=== PATIENT | male | born 1975 | race Caucasian/White ===

== ENCOUNTER 2016-08-17 | Emergency (ER) | payer MEDICARE, MEDICAID | END 2016-08-17 18:18 | disposition home or self-care (01) ==

== ENCOUNTER 2016-08-28 12:00 | Outpatient (CLI) | payer MEDICARE, MEDICAID | END 2016-08-28 12:01 | disposition home or self-care (01) | DX: F15.20 Other stimulant dependence, uncomplicated (principal); F20.9 Schizophrenia, unspecified ==

== ENCOUNTER 2016-10-15 15:47 | Outpatient (CLI) | payer MEDICARE, MEDICAID ==
[2016-10-15] MEDS ORDERED: GADOBUTROL 7.5 MMOL/7.5 ML VIAL IVP ONE (16:38)
== END 2016-10-15 15:48 | disposition home or self-care (01) ==
DX: G40.909 Epilepsy, unspecified, not intractable, without status epilepticus (principal)
CPT/HCPCS: 70553; A9585

== ENCOUNTER 2016-10-20 00:22 | Outpatient (CLI) | payer MEDICARE, MEDICAID | END 2016-10-20 00:23 | disposition critical access hospital (66) | DX: R42 Dizziness and giddiness (principal); R26.2 Difficulty in walking, not elsewhere classified | CPT/HCPCS: A0425; A0429 ==

== ENCOUNTER 2016-10-20 00:48 | Emergency (ER) | payer MEDICARE, MEDICAID ==
[2016-10-20] MEDS ORDERED: MECLIZINE 12.5 MG TABLET PO STA (01:10)
[2016-10-20] MEDS ORDERED: MECLIZINE 12.5 MG TABLET PO ONE (01:10)
== END 2016-10-20 02:56 | disposition home or self-care (01) ==
DX: R42 Dizziness and giddiness (principal); F17.200 Nicotine dependence, unspecified, uncomplicated
CPT/HCPCS: 36415; 80048; 80164; 85025; 99283; 99284; A9270

== ENCOUNTER 2016-11-01 08:00 | Outpatient (CLI) | payer MEDICARE, MEDICAID | END 2016-11-01 23:59 | DX: Z13.29 Encounter for screening for other suspected endocrine disorder (principal) ==

== ENCOUNTER 2016-11-17 04:21 | Outpatient (CLI) | payer MEDICARE, MEDICAID | END 2016-11-17 04:22 | disposition critical access hospital (66) | DX: T20.16XA Burn of first degree of forehead and cheek, initial encounter (principal); X08.8XXA Exposure to other specified smoke, fire and flames, initial encounter; Y93.84 Activity, sleeping; Y92.029 Unspecified place in mobile home as the place of occurrence of the external cause | CPT/HCPCS: A0425; A0429 ==

== ENCOUNTER 2016-11-17 04:49 | Emergency (ER) | payer MEDICARE, MEDICAID ==
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
[2016-11-17] MEDS: lamoTRIgine 100 MG TABLET PO ONE (05:34)
[2016-11-17] MEDS: DIVALPROEX DR 125 MG TABLET PO STA (05:34)
[2016-11-17 05:41] VITALS: BP 127/78
[2016-11-17] MEDS ORDERED: lamoTRIgine 100 MG TABLET PO SCH (09:00)
== END 2016-11-17 05:43 | disposition home or self-care (01) ==
LOC: EDUNIT# → ED 04:49 → SUPCPDRO 04:49 → ED 05:43
DX: T59.811A Toxic effect of smoke, accidental (unintentional), initial encounter (principal); J70.5 Respiratory conditions due to smoke inhalation; Y92.029 Unspecified place in mobile home as the place of occurrence of the external cause; G40.909 Epilepsy, unspecified, not intractable, without status epilepticus; F17.200 Nicotine dependence, unspecified, uncomplicated
CPT/HCPCS: 99283; 99284

== ENCOUNTER 2016-11-28 08:00 | Outpatient (CLI) | payer MEDICARE, MEDICAID | END 2016-11-28 08:01 | disposition home or self-care (01) | DX: H53.8 Other visual disturbances (principal) ==

== ENCOUNTER 2017-04-16 14:05 | Outpatient (CLI) | payer MEDICARE, MEDICAID | END 2017-04-16 14:06 | disposition home or self-care (01) | LOC: LAB.F 14:05 | PROVIDERS: ATTEND Psychiatry & Neurology Neurology | DX: G40.909 Epilepsy, unspecified, not intractable, without status epilepticus (principal); R78.89 Finding of other specified substances, not normally found in blood | CPT/HCPCS: 36415; 80175 ==

== ENCOUNTER 2017-10-28 14:27 | Outpatient (CLI) | payer MEDICARE, MEDICAID | END 2017-10-28 14:28 | disposition EMS.NT | LOC: EMS 14:27 | PROVIDERS: ATTEND Surgery | DX: R56.9 Unspecified convulsions (principal) ==

== ENCOUNTER 2017-11-13 08:00 | Outpatient (CLI) | payer MEDICARE, MEDICAID ==
[2017-11-13 18:04] LABS: VALPROIC ACID (DEPAKOTE) 44.9 ug/mL
== END 2017-11-13 08:01 ==
LOC: LAB.F 08:00
PROVIDERS: ATTEND Psychiatry & Neurology Neurology
DX: R56.9 Unspecified convulsions (principal)
CPT/HCPCS: 36415; 80164; 80175

== ENCOUNTER 2018-06-30 14:37 | Outpatient (CLI) | payer MEDICARE, MEDICAID ==
--- NOTE | 2018-06-30 15:36 | XRAY Report ---
Reason: CONTUSION OF LEFT BACK WALL OF THORAX,INITIAL ENCO Procedure Date: 06/30/2018 Accession Number: [id number] / [id number] Procedure: XR - Ribs w/PA Chest LT CPT Code: FULL RESULT: EXAM: LEFT RIB RADIOGRAPHY EXAM DATE: 06/30/2018 02:56 PM. CLINICAL HISTORY: Contusion of left back wall of thorax, initial encounter. COMPARISON: XR ribs unilateral 2 views 09/16/2008 4:23 PM. TECHNIQUE: 1 view of the chest and 2 views of the ribs. FINDINGS: Bones: Normal. No fracture or bone lesion. Lungs: No focal opacities. No pneumothorax. No pleural effusions. Mediastinum: Heart and mediastinal contours are unremarkable. Other: None. IMPRESSION: No fracture is detected. RADIA
== END 2018-06-30 14:38 | disposition home or self-care (01) ==
LOC: DI 14:37
PROVIDERS: ATTEND Registered Nurse
DX: S20.222A Contusion of left back wall of thorax, initial encounter (principal)

== ENCOUNTER 2018-09-10 14:42 | Outpatient (CLI) | payer MEDICARE, MEDICAID ==
[2018-09-10 18:10] LABS: VALPROIC ACID (DEPAKOTE) 47.8 ug/mL
== END 2018-09-10 14:43 | disposition home or self-care (01) ==
LOC: LAB.F 14:42
PROVIDERS: ATTEND Psychiatry & Neurology Neurology
DX: G40.909 Epilepsy, unspecified, not intractable, without status epilepticus (principal)
CPT/HCPCS: 36415; 80164; 80175

== ENCOUNTER 2019-01-08 14:21 | Outpatient (CLI) | payer MEDICARE, MEDICAID ==
[2019-01-08 17:44] LABS: VALPROIC ACID (DEPAKOTE) 79.7 ug/mL
== END 2019-01-08 14:22 | disposition home or self-care (01) ==
LOC: LAB.F 14:21
PROVIDERS: ATTEND Psychiatry & Neurology Neurology
DX: G40.909 Epilepsy, unspecified, not intractable, without status epilepticus (principal)
CPT/HCPCS: 36415; 80164; 80175

== ENCOUNTER 2019-04-19 14:31 | Emergency (ER) | payer MEDICARE, MEDICAID ==
[2019-04-19] MEDS ORDERED: LIDOCAINE 2% 10 ML MDV SUBQ STA (15:11)
--- NOTE | 2019-04-19 15:24 | ED Physician Documentation ---
History of Present Illness - Stated complaint Stated Complaint: RT SIDED MOUTH PX - Chief complaint Chief Complaint: Heent - History obtained from History obtained from: Patient, Family - History of Present Illness Timing: Today Pain level max: 7 Pain level now: 6 - Additonal information Additional information: 43-year-old male presents to the emergency department stating that the right side of his face is been hurting the past few days. Today had increased swelling. His mother called her dentist who called in a prescription for amoxicillin for him. Swelling worsened and came here for evaluation. No fe vers. Has an appointment with the dentist on Saturday. Nothing makes it better. Worse with eating and drinking Review of Systems Constitutional: denies: Fever, Chills GI: denies: Nausea, Vomiting, Diarrhea Skin: denies: Rash Musculoskeletal: denies: Neck pain, Back pain Neurologic: denies: Headache PD PAST MEDICAL HISTORY - Past Medical History Past Medical History: No Cardiovascular: None Respiratory: None Neuro: Seizure disorder Endocrine/Autoimmune: None GI: None : None HEENT: None Psych: None Musculoskeletal: None Derm: None - Past Surgical History Past Surgical History: No - Present Medications Home Medications: Ambulatory Orders Medication Instructions Recorded Confirmed Divalproex Sodium [Depakote] 250 mg PO BID 11/22/13 11/17/16 lamoTRIgine [LaMICtal] 300 mg PO BID 11/22/13 11/17/[address] [Depakote Dr] 250 mg PO DAILY #10 tablet 11/17/16 Divalproex Sodium [Depakote] 500 mg PO BID #20 tablet. 11/17/16 lamoTRIgine [LaMICtal] 300 mg PO DAILY #30 tablet 11/17/16 risperiDONE [Risperdal] 3 mg PO DAILY #10 tablet 11/17/16 risperiDONE [Risperdal] 3 mg PO DAILY PM 11/17/16 11/17/16 Hydrocodone/Acetaminophen 1 - 2 each PO Q6H PRN #14 tablet 04/19/19 [Hydrocodon-Acetaminophen 5-325] - Allergies Allergies/Adverse Reactions: Allergies Allergy/AdvReac Type Severity Reaction Status Date / Time No Known Drug Allergies Allergy Verified 11/17/16 04:58 - Social History Does the pt smoke?: Yes Smoking Status: Current every day smoker Does the pt drink ETOH?: No Does the pt have substance abuse?: Yes Substance Use and Type: Marijuana, Meth - Immunizations Immunizations are current?: Yes - POLST Patient has POLST: No PD ED PE NORMAL - Vitals Vital signs reviewed: Yes - General General: Alert and oriented X 3, No acute distress - HEENT HEENT: Moist mucous membranes - Neck Neck: Supple, no meningeal sign, No adenopathy - Cardiac Cardiac: RRR - Respiratory Respiratory: No respiratory distress, Clear bilaterally - Derm Derm: Warm and dry - Neuro Neuro: Alert and oriented X 3 PD ED PE EXPANDED - HEENT HEENT Visual: 1 - abscess, swelling, tenderness Results - Vitals Vitals: Vital Signs - 24 hr 04/19/19 04/19/19 15:28 16:14 Temperature 36.8 C Heart Rate 85 94 Respiratory 18 18 Rate Blood Pressure 143/72 H 152/87 H O2 Saturation 98 97 Oxygen O2 Source Room air Procedures - General procedure General procedure: Lidocaine was infiltrated into the right cheek and next to the teeth on the right maxilla. Good anesthesia achieved. An 18-gauge needle was placed and 2 cc of purulent material removed. Tolerated well. PD MEDICAL DECISION MAKING - ED course Complexity details: considered differential, d/w patient ED course: 43-year-old male with dental abscess and facial swelling. This was confirmed with ultrasound. Needle aspiration performed. Tolerated well. Given Rocephin here. We will continue the amoxicillin at home. We will also prescribe pain medication for home. Patient counseled regarding signs and symptoms for which I believe and urgent re-evaluation would be necessary. Patient with good understanding of and agreement to plan and is comfortable going home at this time This document was made in part using voice recognition software. While efforts are made to proofread this document, sound alike and grammatical errors may occur. Departure - Departure Disposition: 01 Home, Self Care Clinical Impression: Pain due to dental caries, Dental abscess Condition: Good Instructions: ED Abscess Dental Follow-Up: Provider,Other [Primary Care Provider] - Prescriptions: Hydrocodone/Acetaminophen [Hydrocodon-Acetaminophen 5-325] 1 - 2 each PO Q6H PRN #14 tablet PRN Reason: pain Comments: Follow-up with your dentist in 2 days. Return if you worsen. The swelling should decrease over the next 24 hours. Continue the antibiotics at home. Do not drink alcohol or drive while on narcotic pain medicine. Note that many narcotic pain relievers also contain tylenol/acetaminophen. Please ensure that your total dose of acetaminophen from all sources does not exceed 3 grams (3000mg) per day. You may constipated on this medication, take a stool softener such as "Colace" twice a day while you are on it. Also recommend a [id number] laxative such as senna or MiraLAX any day that you do not have a bowel movement. If you received narcotic pain medication in the emergency department, do not drive or operate machinery for the next 24 hours. Discharge Date/Time: 04/19/19 16:15
[2019-04-19] MEDS ORDERED: cefTRIAXone 1 GM VIAL IM STA (15:36)
[2019-04-19] MEDS ORDERED: HYDROcod/ACETAM 5/325 MG TABLET PO STA (15:36)
[2019-04-19] MEDS ORDERED: LIDOCAINE 1% 2 ML VIAL MC ONE (15:36)
[2019-04-19 16:15] VITALS: BP 152/87
== END 2019-04-19 16:15 | disposition home or self-care (01) ==
LOC: ED 14:31
DX: K04.7 Periapical abscess without sinus (principal); K02.9 Dental caries, unspecified; F17.200 Nicotine dependence, unspecified, uncomplicated
CPT/HCPCS: 41800; 96372; 99283; 99284; A9270

== ENCOUNTER 2019-05-22 18:51 | Outpatient (CLI) | payer MEDICARE, MEDICAID | END 2019-05-22 18:52 | disposition EMS.NT | LOC: EMS 18:51 | PROVIDERS: ATTEND Surgery | DX: R56.9 Unspecified convulsions (principal) ==

== ENCOUNTER 2019-10-22 14:39 | Outpatient (CLI) | payer MEDICARE, MEDICAID | END 2019-10-22 14:40 | disposition home or self-care (01) | LOC: LAB 14:39 | PROVIDERS: ATTEND Psychiatry & Neurology Neurology | DX: G40.909 Epilepsy, unspecified, not intractable, without status epilepticus (principal) | CPT/HCPCS: 36415; 80164; 80175 ==

== ENCOUNTER 2020-02-03 15:17 | Outpatient (CLI) | payer MEDICARE, MEDICAID ==
[2020-02-03 20:27] LABS: VALPROIC ACID (DEPAKOTE) 112.4 ug/mL
== END 2020-02-03 15:18 | disposition home or self-care (01) ==
LOC: LAB.S 15:17
PROVIDERS: ATTEND Psychiatry & Neurology Neurology
DX: G40.909 Epilepsy, unspecified, not intractable, without status epilepticus (principal)
CPT/HCPCS: 36415; 80164; 80175

== ENCOUNTER 2020-02-16 14:21 | Outpatient (CLI) | payer MEDICARE, MEDICAID ==
[2020-02-16 21:02] LABS: BASOPHILS % (AUTO) 0.4 %; EOSINOPHILS # (AUTO) 0.1 10^3/uL (0.0-0.7); EOSINOPHILS % (AUTO) 1.3 %; HGB - HEMOGLOBIN 13.3 g/dL (14.0-18.0); LYMPHOCYTES # (AUTO) 2.2 10^3/uL (1.5-3.5); LYMPHOCYTES % (AUTO) 31.2 %; MEAN CORPUSCULAR HEMOGLOBIN 33.1 pg (27.0-31.0); MEAN CORPUSCULAR HGB CONC 32.5 g/dL (32.0-36.0); MEAN CORPUSCULAR VOLUME 101.7 fL (80.0-94.0); MEAN PLATELET VOLUME 9.8 fL (7.4-11.4); MONOCYTES # (AUTO) 0.7 10^3/uL (0.0-1.0); MONOCYTES % (AUTO) 9.9 %; NEUTROPHILS # (AUTO) 4.1 10^3/uL (1.5-6.6); NEUTROPHILS % (AUTO) 56.9 %; PLT - PLATELET COUNT 225 10^3/uL (130-450); RED BLOOD COUNT 4.02 10^6/uL (4.70-6.10); RED CELL DISTRIBUTION WIDTH 12.2 % (12.0-15.0); WHITE BLOOD COUNT 7.2 x10^3/uL (4.8-10.8)
[2020-02-16 21:19] LABS: ALBUMIN 4.2 g/dL (3.2-5.5); ALKALINE PHOSPHATASE 51 IU/L (42-121); ALT ALANINE AMINOTRANSFERASE 17 IU/L (10-60); AST ASPARTATE AMINOTRANSFERASE 23 IU/L (10-42); BILIRUBIN,TOTAL 0.7 mg/dL (0.2-1.0); BUN - BLOOD UREA NITROGEN 13 mg/dL (6-20); CALCIUM 8.9 mg/dL (8.5-10.3); CARBON DIOXIDE - CO2 28 mmol/L (21-32); CHLORIDE 96 mmol/L (101-111); CREATININE 0.9 mg/dL (0.6-1.2); GLUCOSE 130 mg/dL (70-100); SODIUM 138 mmol/L (135-145); TOTAL PROTEIN 6.3 g/dL (6.7-8.2)
[2020-02-16 21:59] LABS: CRP - C-REACTIVE PROTEIN < 1.0 mg/dL (0-1.0)
[2020-02-19 14:34] LABS: ANA SCREEN NEGATIVE (NEGATIVE)
== END 2020-02-16 14:22 | disposition home or self-care (01) ==
LOC: LAB.S 14:21
PROVIDERS: ATTEND Family Medicine
DX: F20.9 Schizophrenia, unspecified (principal); M54.5 Low back pain; G40.909 Epilepsy, unspecified, not intractable, without status epilepticus
CPT/HCPCS: 36415; 80053; 85025; 85651; 86038; 86140

== ENCOUNTER 2020-05-07 07:00 | Outpatient (CLI) | payer MEDICARE, MEDICAID | END 2020-05-07 23:59 | disposition home or self-care (01) | LOC: LAB.R 07:00 | PROVIDERS: ATTEND Emergency Medicine | DX: L02.412 Cutaneous abscess of left axilla (principal) | CPT/HCPCS: 87070; 87181; 87205 ==

== ENCOUNTER 2021-01-05 14:24 | Outpatient (CLI) | payer MEDICARE, MEDICAID ==
--- NOTE | 2021-01-05 16:37 | XRAY Report ---
PROCEDURE: Ankle 3 View RT INDICATIONS: Right ankle sprain TECHNIQUE: 3 views of the ankle were acquired. COMPARISON: None FINDINGS: Bones: No fractures or dislocations. Ankle mortise is normally aligned. No suspicious bony lesions . Soft tissues: No tibiotalar joint effusion. Achilles tendon appears normal. IMPRESSION: No acute finding. Reviewed by: Tio Diaz MD on 01/05/2021 4:36 PM PDT Approved by: Toi Diaz MD on 01/05/2021 4:36 PM PDT Station ID: [id number]
== END 2021-01-05 23:59 | disposition home or self-care (01) ==
LOC: DI.S 14:24
PROVIDERS: ATTEND Emergency Medicine
DX: S93.491A Sprain of other ligament of right ankle, initial encounter (principal)

== ENCOUNTER 2021-01-11 15:27 | Emergency (ER) | payer MEDICARE, MEDICAID ==
--- OUTSIDE RECORDS SUMMARY | 2021-01-11 16:06 | EXTERNAL MEDICAL SUMMARY RPT | Continuity of Care Document ---
:1975 Demographics Phone Unavailable Preferred Language Unknown Marital Status Unknown Sikhism Affiliation Unknown Race Unknown Ethnic Group Unknown Author Organization [facility] Address [address] [place] [address] Phone Allergies Encounters Medications Problems Results
[2021-01-11 16:07] LABS: BASOPHILS % (AUTO) 0.3 %; EOSINOPHILS # (AUTO) 0.1 10^3/uL (0.0-0.7); EOSINOPHILS % (AUTO) 1.8 %; HGB - HEMOGLOBIN 15.3 g/dL (14.0-18.0); LYMPHOCYTES # (AUTO) 2.4 10^3/uL (1.5-3.5); LYMPHOCYTES % (AUTO) 29.9 %; MEAN CORPUSCULAR HEMOGLOBIN 32.4 pg (27.0-31.0); MEAN CORPUSCULAR VOLUME 95.3 fL (80.0-94.0); MONOCYTES # (AUTO) 0.9 10^3/uL (0.0-1.0); MONOCYTES % (AUTO) 11.5 %; NEUTROPHILS # (AUTO) 4.5 10^3/uL (1.5-6.6); NEUTROPHILS % (AUTO) 56.2 %; PLT - PLATELET COUNT 273 10^3/uL (130-450); RED BLOOD COUNT 4.72 10^6/uL (4.70-6.10); RED CELL DISTRIBUTION WIDTH 11.9 % (12.0-15.0)
[2021-01-11 16:24] LABS: ACETAMINOPHEN < 10 ug/mL (10-30); ALBUMIN 4.2 g/dL (3.2-5.5); ALBUMIN/GLOBULIN RATIO 1.4 (1.0-2.2); ALKALINE PHOSPHATASE 67 IU/L (42-121); ALT ALANINE AMINOTRANSFERASE 32 IU/L (10-60); AST ASPARTATE AMINOTRANSFERASE 25 IU/L (10-42); BILIRUBIN,TOTAL 0.6 mg/dL (0.2-1.0); BUN - BLOOD UREA NITROGEN 20 mg/dL (6-20); CALCIUM 9.4 mg/dL (8.5-10.3); CARBON DIOXIDE - CO2 27 mmol/L (21-32); CHLORIDE 101 mmol/L (101-111); CREATININE 0.9 mg/dL (0.6-1.2); ETOH - ETHANOL < 5.0 mg/dL; GFR - MDRD 92 (>89); GLUCOSE 110 mg/dL (70-100); LIPASE 38 U/L (22-51); POTASSIUM 3.4 mmol/L (3.5-5.0); SALICYLATE < 6.0 mg/dL; SODIUM 139 mmol/L (135-145); TOTAL PROTEIN 7.1 g/dL (6.7-8.2)
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
[2021-01-11 17:00] LABS: VALPROIC ACID (DEPAKOTE) 51.3 ug/mL
--- NOTE | 2021-01-11 17:02 | CT Report ---
PROCEDURE: HEAD WO INDICATIONS: Seizure, head injury TECHNIQUE: Noncontrast 4.5 mm thick angled axial sections acquired from the foramen magnum to the vertex. For r adiation dose reduction, the following was used: automated exposure control, adjustment of mA and/or kV according to patient size. COMPARISON: MR brain 10/15/2016; head CT 06/15/2016 FINDINGS: Image quality: Excellent. CSF spaces: Basal cisterns are patent. No extra-axial fluid collections. Ventricles are normal in size and shape. Brain: No midline shift. No intracranial masses or hemorrhage. Calix-white matter interface is norm al. Skull and face: Calvarium and visualized facial bones are intact, without suspicious lesions. Sinuses: Visualized sinuses and mastoids are clear. IMPRESSION: No acute intracranial abnormality. Reviewed by: Toi Diaz MD on 01/11/2021 5:00 PM PDT Approved by: Toi Diaz MD on 01/11/2021 5:00 PM PDT Station ID: [id number]
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
[2021-01-11 19:07] LABS: MUDS CUTOFF CONCENTRATIONS CUTOFF CONC BELOW:
[2021-01-11 19:09] LABS: BILIRUBIN,URINE NEGATIVE (NEGATIVE); GLUCOSE, URINE (UA) NEGATIVE (NEGATIVE); KETONES,URINE (UA) TRACE mg/dL (NEGATIVE); LEUKOCYTE ESTERASE, URINE NEGATIVE (NEGATIVE); NITRITE,URINE NEGATIVE (NEGATIVE); OCCULT BLOOD,URINE NEGATIVE (NEGATIVE); PROTEIN,URINE TRACE mg/dL (NEGATIVE); UROBILINOGEN,URINE 2 E.U./dL (NORMAL)
[2021-01-11 19:11] LABS: CLARITY,URINE CLEAR (CLEAR)
[2021-01-11 19:20] LABS: THC CANNABINOID SCREEN, URINE POSITIVE (NEGATIVE)
[2021-01-11 19:21] LABS: AMPHETAMINE SCREEN,URINE POSITIVE (NEGATIVE); BARBITURATE SCREEN,UR NEGATIVE (NEGATIVE); BENZODIAZEPINES SCREEN, URINE NEGATIVE (NEGATIVE); COCAINE SCREEN URINE NEGATIVE (NEGATIVE); METHADONE SCREEN, URINE NEGATIVE (NEGATIVE); METHAMPHETAMINES SCREEN, URINE POSITIVE (NEGATIVE); OPIATE SCREEN, URINE NEGATIVE (NEGATIVE); OXYCODONE SCREEN, URINE NEGATIVE (NEGATIVE); PROPOXYPHENE SCREEN, URINE NEGATIVE (NEGATIVE); TRICYCLIC ANTIDEPRESSANT,URINE NEGATIVE (NEGATIVE)
[2021-01-11 21:01] LABS: B. PARAPERTUSSIS- RESP PCR PAN NOT DETECTED; B. PERTUSSIS- RESP PCR PANEL NOT DETECTED; C. PNEUMONIAE- RESP PCR PANEL NOT DETECTED; CORONAVIRUS 229E-RESP PCR NOT DETECTED; CORONAVIRUS HKU1-RESP PCR NOT DETECTED; CORONAVIRUS NL63-RESP PCR NOT DETECTED; CORONAVIRUS OC43-RESP PCR NOT DETECTED; HUMAN METAPNEUMOVIRUS NOT DETECTED; INFLUENZA A- RESP PCR PANEL NOT DETECTED; INFLUENZA B - RESP PCR PANEL NOT DETECTED; M. PNEUMONIAE- RESP PCR PANEL NOT DETECTED; PARAINFLUENZA VIRUS 1 NOT DETECTED; PARAINFLUENZA VIRUS 2 NOT DETECTED; PARAINFLUENZA VIRUS 3 NOT DETECTED; PARAINFLUENZA VIRUS 4 NOT DETECTED; RHINOVIRUS/ENTEROVIRUS NOT DETECTED; RSV- RESP PCR PANEL NOT DETECTED; SARS-CoV-2 -RESP PCR PANEL NOT DETECTED
[2021-01-12] MEDS ORDERED: risperiDONE 1 MG TABLET PO SCH (09:00)
[2021-01-12] MEDS ORDERED: lamoTRIgine 100 MG TABLET PO SCH (09:00)
[2021-01-12] MEDS ORDERED: DIVALPROEX ER 250 MG TABLET PO SCH ×2 (09:00→21:00)
--- NOTE | 2021-01-12 13:40 | ED Physician Documentation ---
ED Addendum - Addendum Addendum: 01/12/21 13:39Process.Patient had rested overnight. Report to me in the morning was he ate breakfast this morning. Social work saw him and talked with him. At this point he was not suicidal nor psychotic. He did agree to detox and arrangements were made for him to go to [facility] detox. He is medically clear and able to go at that this time.
[2021-01-12 14:07] VITALS: BP 134/82
== END 2021-01-12 14:00 | disposition home or self-care (01) ==
LOC: ED 15:27
DX: F15.10 Other stimulant abuse, uncomplicated (principal); F29 Unspecified psychosis not due to a substance or known physiological condition; Z20.822 Contact with and (suspected) exposure to COVID-19; G40.909 Epilepsy, unspecified, not intractable, without status epilepticus; F17.200 Nicotine dependence, unspecified, uncomplicated
CPT/HCPCS: 36415; 70450; 80053; 80164; 80306; 80307; 81003; 83690; 84443; 85025; 87631; 99284; 99285; A9270; G0425; G0480; Q3014; 0202U; 80320; 80329; 81001; 87086

== ENCOUNTER 2021-02-23 11:14 | Outpatient (CLI) | payer MEDICARE, MEDICAID | END 2021-02-23 11:15 | disposition EMS.NT | LOC: EMS 11:14 | DX: Z03.89 Encounter for observation for other suspected diseases and conditions ruled out (principal) ==

== ENCOUNTER 2021-02-23 12:25 | Emergency (ER) | payer MEDICARE, MEDICAID ==
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
[2021-02-23 12:55] LABS: BASOPHILS % (AUTO) 0.5 %; EOSINOPHILS # (AUTO) 0.1 10^3/uL (0.0-0.7); EOSINOPHILS % (AUTO) 0.7 %; HCT - HEMATOCRIT 46.5 % (42.0-52.0); HGB - HEMOGLOBIN 15.6 g/dL (14.0-18.0); LYMPHOCYTES % (AUTO) 27.6 %; MEAN CORPUSCULAR HEMOGLOBIN 32.6 pg (27.0-31.0); MEAN CORPUSCULAR HGB CONC 33.5 g/dL (32.0-36.0); MEAN CORPUSCULAR VOLUME 97.1 fL (80.0-94.0); MONOCYTES # (AUTO) 0.6 10^3/uL (0.0-1.0); MONOCYTES % (AUTO) 8.3 %; NEUTROPHILS # (AUTO) 4.6 10^3/uL (1.5-6.6); NEUTROPHILS % (AUTO) 62.5 %; PLT - PLATELET COUNT 219 10^3/uL (130-450); RED BLOOD COUNT 4.79 10^6/uL (4.70-6.10); RED CELL DISTRIBUTION WIDTH 12.3 % (12.0-15.0); WHITE BLOOD COUNT 7.3 x10^3/uL (4.8-10.8)
[2021-02-23 13:07] LABS: MUDS CUTOFF CONCENTRATIONS CUTOFF CONC BELOW:
[2021-02-23 13:08] LABS: VALPROIC ACID (DEPAKOTE) 109.4 ug/mL
[2021-02-23 13:10] LABS: BILIRUBIN,URINE NEGATIVE (NEGATIVE); GLUCOSE, URINE (UA) NEGATIVE (NEGATIVE); KETONES,URINE (UA) NEGATIVE (NEGATIVE); LEUKOCYTE ESTERASE, URINE NEGATIVE (NEGATIVE); NITRITE,URINE NEGATIVE (NEGATIVE); OCCULT BLOOD,URINE NEGATIVE (NEGATIVE); PH,URINE 6.5 PH (5.0-7.5); PROTEIN,URINE NEGATIVE (NEGATIVE); UROBILINOGEN,URINE 0.2 (NORMAL) E.U./dL (NORMAL)
[2021-02-23 13:10] LABS: ACETAMINOPHEN < 10 ug/mL (10-30); ALBUMIN 4.6 g/dL (3.2-5.5); ALBUMIN/GLOBULIN RATIO 1.4 (1.0-2.2); ALKALINE PHOSPHATASE 67 IU/L (42-121); ALT ALANINE AMINOTRANSFERASE 25 IU/L (10-60); AST ASPARTATE AMINOTRANSFERASE 23 IU/L (10-42); BILIRUBIN,TOTAL 0.5 mg/dL (0.2-1.0); BUN - BLOOD UREA NITROGEN 15 mg/dL (6-20); CALCIUM 9.7 mg/dL (8.5-10.3); CARBON DIOXIDE - CO2 26 mmol/L (21-32); CHLORIDE 98 mmol/L (101-111); CREATININE 1.1 mg/dL (0.6-1.2); ETOH - ETHANOL < 5.0 mg/dL; GFR - MDRD 73 (>89); GLUCOSE 107 mg/dL (70-100); LIPASE 26 U/L (22-51); POTASSIUM 3.6 mmol/L (3.5-5.0); SALICYLATE < 6.0 mg/dL; SODIUM 138 mmol/L (135-145); TOTAL PROTEIN 7.8 g/dL (6.7-8.2)
[2021-02-23 13:16] LABS: CLARITY,URINE CLEAR (CLEAR)
[2021-02-23 13:19] LABS: AMPHETAMINE SCREEN,URINE POSITIVE (NEGATIVE); COCAINE SCREEN URINE NEGATIVE (NEGATIVE); METHAMPHETAMINES SCREEN, URINE POSITIVE (NEGATIVE); OPIATE SCREEN, URINE NEGATIVE (NEGATIVE); THC CANNABINOID SCREEN, URINE POSITIVE (NEGATIVE)
[2021-02-23 13:20] LABS: BARBITURATE SCREEN,UR NEGATIVE (NEGATIVE); BENZODIAZEPINES SCREEN, URINE NEGATIVE (NEGATIVE); METHADONE SCREEN, URINE NEGATIVE (NEGATIVE); OXYCODONE SCREEN, URINE NEGATIVE (NEGATIVE); PROPOXYPHENE SCREEN, URINE NEGATIVE (NEGATIVE); TRICYCLIC ANTIDEPRESSANT,URINE NEGATIVE (NEGATIVE)
[2021-02-23 14:35] LABS: B. PARAPERTUSSIS- RESP PCR PAN NOT DETECTED; B. PERTUSSIS- RESP PCR PANEL NOT DETECTED; C. PNEUMONIAE- RESP PCR PANEL NOT DETECTED; CORONAVIRUS 229E-RESP PCR NOT DETECTED; CORONAVIRUS HKU1-RESP PCR NOT DETECTED; CORONAVIRUS NL63-RESP PCR NOT DETECTED; CORONAVIRUS OC43-RESP PCR NOT DETECTED; HUMAN METAPNEUMOVIRUS NOT DETECTED; INFLUENZA A- RESP PCR PANEL NOT DETECTED; INFLUENZA B - RESP PCR PANEL NOT DETECTED; M. PNEUMONIAE- RESP PCR PANEL NOT DETECTED; PARAINFLUENZA VIRUS 1 NOT DETECTED; PARAINFLUENZA VIRUS 2 NOT DETECTED; PARAINFLUENZA VIRUS 3 NOT DETECTED; PARAINFLUENZA VIRUS 4 NOT DETECTED; RHINOVIRUS/ENTEROVIRUS NOT DETECTED; RSV- RESP PCR PANEL NOT DETECTED; SARS-CoV-2 -RESP PCR PANEL NOT DETECTED
[2021-02-23 15:12] VITALS: BP 143/89
== END 2021-02-23 15:05 | disposition home or self-care (01) ==
LOC: ED 12:25
DX: F15.10 Other stimulant abuse, uncomplicated (principal); R00.0 Tachycardia, unspecified; Z20.822 Contact with and (suspected) exposure to COVID-19; F17.200 Nicotine dependence, unspecified, uncomplicated
CPT/HCPCS: 36415; 80053; 80164; 80306; 80307; 81003; 83690; 84443; 85025; 87631; 93005; 99283; G0480; 0202U; 80320; 80329; 81001; 87086

== ENCOUNTER 2021-03-18 22:35 | Outpatient (CLI) | payer MEDICARE, MEDICAID | END 2021-03-18 22:36 | disposition EMS.NT | LOC: EMS 22:35 | DX: R56.9 Unspecified convulsions (principal) ==

== ENCOUNTER 2022-06-08 15:53 | Outpatient (CLI) | payer MEDICARE, MEDICAID | END 2022-06-08 15:54 | disposition critical access hospital (66) | LOC: EMS 15:53 | DX: R56.9 Unspecified convulsions (principal) | CPT/HCPCS: A0425; A0429 ==

== ENCOUNTER 2022-06-08 16:41 | Emergency (ER) | payer MEDICARE, MEDICAID ==
--- NOTE | 2022-06-08 16:54 | ED Physician Documentation ---
PD HPI SEIZURE - Stated complaint Stated Complaint: SEIZURE - Chief complaint Chief Complaint: Neuro - History obtained from History obtained from: Patient, EMS - History of Present Illness Witnessed: Witnessed Description of seizure activity: Generalized, Tonic clonic Injury during seizure: Head injury Pain level max: 4 Pain level now: 4 History of seizures: Known seizure disorder, Prior TBI Contributing factors: Head injury, Substance abuse. No: EtOH withdrawal, Fever, Sleep deprivation - Additional information Additional information: Patient is a 46-year-old male who presents to the emergency department with a seizure today that was witnessed. He states that he has a longstanding history of seizures. He states he has been taking his medication as prescribed. He is on Depakote and Lamictal. He states that he does smoke cigarettes and marijuana and methamphetamines. Last used methamphetamine last night. Reportedly the patient fell to the ground and struck his head on the concrete. Has bruising around the right eye. Patient denies any neck or back pain. No shoulder, hip, knee, elbow, hand, foot pain. Patient is not on any blood thinners. He is unsure when his last seizure was. Denies any recent illnesses or insomnia This seizure was witnessed, generalized tonic-clonic and lasted for 1 to 2 minutes. Review of Systems Constitutional: denies: Fever, Chills Respiratory: denies: Cough GI: denies: Nausea, Vomiting, Diarrhea : denies: Dysuria Skin: denies: Rash Musculoskeletal: denies: Neck pain, Back pain Neurologic: denies: Focal weakness, Numbness, Confused PD PAST MEDICAL HISTORY - Past Medical History Past Medical History: Yes Cardiovascular: None Respiratory: None Neuro: None, Seizure disorder Endocrine/Autoimmune: None GI: None : None HEENT: None Psych: None Musculoskeletal: None Derm: None - Past Surgical History Past Surgical History: No - Present Medications Home Medications: Ambulatory Orders Medication Instructions Recorded Confirmed lamoTRIgine [LaMICtal] 300 mg PO BID 11/22/13 03/06/20 risperiDONE [Risperdal] 3 mg PO DAILY PM 11/17/16 03/06/20 Divalproex Sodium 250 mg PO 03/06/20 Divalproex Sodium [Depakote] 1,500 mg PO DAILY 03/06/20 03/06/20 - Allergies Allergies/Adverse Reactions: Allergies Allergy/AdvReac Type Severity Reaction Status Date / Time No Known Drug Allergies Allergy Verified 02/23/21 12:33 - Social History Does the pt smoke?: Yes Smoking Status: Current every day smoker Does the pt drink ETOH?: No Does the pt have substance abuse?: Yes - Immunizations Immunizations are current?: Yes - POLST Patient has POLST: No PD ED PE NORMAL - Vitals Vital signs reviewed: Yes - General General: Alert and oriented X 3, No acute distress, Well developed/nourished - HEENT HEENT: PERRL, EOMI, Ears normal, Moist mucous membranes, Other (Hematoma to the right periorbital area. Normal inspection of the eye. No hyphema. Normal vision. Normal pupil. Extraocular movements intact. No palpable skull fractures. No other facial tenderness) - Neck Neck: Supple, no meningeal sign, No bony TTP - Cardiac Cardiac: RRR, Strong equal pulses - Respiratory Respiratory: No respiratory distress, Clear bilaterally - Abdomen Abdomen: Soft, Non tender, Non distended - Back Back: No spinal TTP - Derm Derm: Warm and dry - Extremities Extremities: Normal ROM s pain, Other (Full range of motion of all joints without pain.) - Neuro Neuro: Alert and oriented X 3, supervisor rolling room 2-12 intact, No motor deficit, No sensory deficit, Normal speech Eye Opening: Spontaneous Motor: Obeys Commands Verbal: Oriented GCS Score: 15 - Psych Psych: Normal mood, Normal affect Results - Vitals Vitals: Vital Signs - 24 hr 06/08/22 16:53 Temperature 37.2 C Heart Rate 100 Respiratory 17 Rate Blood Pressure 132/82 H O2 Saturation 98 Oxygen O2 Source Room air - Labs Labs: Laboratory Tests 06/08/22 06/08/22 17:00 17:00 WBC 5.8 RBC 3.84 L Hgb 12.6 L Hct 38.0 L MCV 99.0 H MCH 32.8 H MCHC 33.2 RDW 12.8 Plt Count 198 MPV 9.0 Neut # (Auto) 3.8 Lymph # (Auto) 1.5 [place] # (Auto) 0.4 Eos # (Auto) 0.0 Baso # (Auto) 0.0 Absolute Nucleated RBC 0.00 Nucleated RBC % 0.0 Sodium 139 Potassium 3.5 Chloride 105 Carbon Dioxide 22 Anion Gap 12.0 BUN 15 Creatinine 0.9 Estimated GFR (MDRD) 91 Glucose 83 Calcium 8.4 L Last Dose Date Not Reportable Last Dose Time Not Reportable Valproic Acid 83.1 - Rads (name of study) head CT Radiology: Final report received, EMP read contemporaneously, See rad report maxillofacial CT Radiology: Final report received, EMP read contemporaneously, See rad report PD MEDICAL DECISION MAKING - ED course Complexity details: reviewed results, re-evaluated patient, considered differential, d/w patient, d/w family ED course: No acute findings on maxillofacial CT or head CT other than the periorbital hematoma and contusion. No significant lab abnormalities. Depakote level is therapeutic. Patient is currently asymptomatic and request to go home. We will have him follow-up with his PCP for further care. Patient counseled regarding signs and symptoms for which I believe and urgent re-evaluation would be necessary. Patient with good understanding of and agreement to plan and is comfortable going home at this time This document was made in part using voice recognition software. While efforts are made to proofread this document, sound alike and grammatical errors may occur. Departure - Departure Disposition: 01 Home, Self Care Clinical Impression: Seizure Periorbital contusion of right eye Qualifiers: Encounter type: initial encounter Qualified Code(s): S05.11XA - Contusion of eyeball and orbital tissues, right eye, initial encounter Condition: Good Instructions: ED Seizure Recurrent Follow-Up: your,doctor in 1week [Other] Comments: Your Depakote level is therapeutic today. Your CT scans do not show any acute abnormalities other than the swelling and bruising around your eye. Please follow-up with your doctor as needed for further care. Return if you worsen.
[2022-06-08 17:09] LABS: BASOPHILS % (AUTO) 0.3 %; EOSINOPHILS % (AUTO) 0.5 %; HGB - HEMOGLOBIN 12.6 g/dL (14.0-18.0); LYMPHOCYTES # (AUTO) 1.5 10^3/uL (1.5-3.5); LYMPHOCYTES % (AUTO) 25.5 %; MEAN CORPUSCULAR HEMOGLOBIN 32.8 pg (27.0-31.0); MEAN CORPUSCULAR HGB CONC 33.2 g/dL (32.0-36.0); MONOCYTES # (AUTO) 0.4 10^3/uL (0.0-1.0); MONOCYTES % (AUTO) 7.5 %; NEUTROPHILS # (AUTO) 3.8 10^3/uL (1.5-6.6); NEUTROPHILS % (AUTO) 65.9 %; PLT - PLATELET COUNT 198 10^3/uL (130-450); RED BLOOD COUNT 3.84 10^6/uL (4.70-6.10); RED CELL DISTRIBUTION WIDTH 12.8 % (12.0-15.0); WHITE BLOOD COUNT 5.8 x10^3/uL (4.8-10.8)
[2022-06-08 17:23] LABS: BUN - BLOOD UREA NITROGEN 15 mg/dL (6-20); CALCIUM 8.4 mg/dL (8.5-10.3); CARBON DIOXIDE - CO2 22 mmol/L (21-32); CHLORIDE 105 mmol/L (101-111); CREATININE 0.9 mg/dL (0.6-1.2); GFR - MDRD 91 (>89); GLUCOSE 83 mg/dL (70-100); POTASSIUM 3.5 mmol/L (3.5-5.0); SODIUM 139 mmol/L (135-145); VALPROIC ACID (DEPAKOTE) 83.1 ug/mL
--- NOTE | 2022-06-08 17:54 | CT Report ---
PROCEDURE: MAXILLOFACIAL WO INDICATIONS: seizure, fall, R head/periorbital injury TECHNIQUE: Noncontrast 1.5 mm thick axial images acquired from the mandible through the frontal sinuses, with co etienne and sagittal reformatting. For radiation dose reduction, the following was used: automated ex posure control, adjustment of mA and/or kV according to patient size. COMPARISON: Correlation is made with the accompanying head CT, 06/08/2022. FINDINGS: Image quality: Excellent. Bones and teeth: Orbital martel are intact. Sinus martel show no fracture or deformity. Comminuted n vlad bone fractures are seen, with a chronic appearance. There is mild rightward nasal septal deviati on seen, which is chronic. Visualized portions of the mandible demonstrate no fractures or subluxatio n. Zygomatic arches are intact. Pterygoid plates are intact. Visualized portions of the skull base and auditory canals are intact. Sinuses: Paranasal sinuses are aerated, without fluid levels, mucosal thickening, or mucoceles. Mas toid air cells are aerated. Soft tissues: Right periorbital soft tissue swelling is seen. Vascular: Visualized vascular structures appear normal in the absence of contrast. Bony vascular fo ramina and canals are intact. IMPRESSION: Right periorbital soft tissue swelling is seen. No regional fracture is seen. Chronic appearing nasal bone fractures, although please correlate with patient history and physical e xamination findings. No additional facial bone fractures are detected. Reviewed by: Everardo Champagne MD on 06/08/2022 4:52 PM ABEL Approved by: Everardo Champagne MD on 06/08/2022 4:52 PM [id number] Station ID: [id number]
--- NOTE | 2022-06-08 17:55 | CT Report ---
PROCEDURE: HEAD WO INDICATIONS: seizure, fall, R head/periorbital injury TECHNIQUE: Noncontrast 4.5 mm thick angled axial sections acquired from the foramen magnum to the vertex. For r adiation dose reduction, the following was used: automated exposure control, adjustment of mA and/or kV according to patient size. COMPARISON: 02/10/2021, 06/15/2016. Correlation is made with the company maxillofacial CT, 06/08/2022. FINDINGS: Image quality: Excellent. CSF spaces: Basal cisterns are patent. No extra-axial fluid collections. Ventricles are normal in size and shape. Brain: No midline shift. No intracranial masses or hemorrhage. Calix-white matter interface is norm al. Skull and face: Right periorbital soft tissue swelling is seen. No regional fracture is seen. Remote appearing nasal bone fractures are seen. Calvarium and visualized facial bones are intact, without s uspicious lesions. Sinuses: Visualized sinuses and mastoids are clear. IMPRESSION: Right parietal soft tissue swelling is seen. No associated fracture is seen. Remote appearing nasal bone fractures are seen. No intracranial hemorrhage is seen. No significant intracranial abnormality is seen. Reviewed by: Everardo Champagne MD on 06/08/2022 4:54 PM ABEL Approved by: Everardo Champagne MD on 06/08/2022 4:54 PM ABEL Station ID: [id number]
[2022-06-08 18:19] VITALS: BP 143/104
== END 2022-06-08 18:23 | disposition home or self-care (01) ==
LOC: EDUNIT# → ED 16:41
DX: G40.909 Epilepsy, unspecified, not intractable, without status epilepticus (principal); S05.11XA Contusion of eyeball and orbital tissues, right eye, initial encounter; F17.200 Nicotine dependence, unspecified, uncomplicated
CPT/HCPCS: 36415; 80048; 80164; 85025; 99283; 99284

== ENCOUNTER 2022-08-10 13:19 | Outpatient (CLI) | payer MEDICARE, MEDICAID ==
[2022-08-10 19:30] LABS: BASOPHILS % (AUTO) 0.5 %; EOSINOPHILS # (AUTO) 0.1 10^3/uL (0.0-0.7); EOSINOPHILS % (AUTO) 1.6 %; HCT - HEMATOCRIT 46.3 % (42.0-52.0); HGB - HEMOGLOBIN 15.1 g/dL (14.0-18.0); LYMPHOCYTES # (AUTO) 2.6 10^3/uL (1.5-3.5); LYMPHOCYTES % (AUTO) 32.3 %; MEAN CORPUSCULAR HEMOGLOBIN 32.8 pg (27.0-31.0); MEAN CORPUSCULAR HGB CONC 32.6 g/dL (32.0-36.0); MEAN CORPUSCULAR VOLUME 100.7 fL (80.0-94.0); MEAN PLATELET VOLUME 9.6 fL (7.4-11.4); MONOCYTES # (AUTO) 0.6 10^3/uL (0.0-1.0); MONOCYTES % (AUTO) 7.7 %; NEUTROPHILS # (AUTO) 4.6 10^3/uL (1.5-6.6); NEUTROPHILS % (AUTO) 57.7 %; PLT - PLATELET COUNT 229 10^3/uL (130-450); RED CELL DISTRIBUTION WIDTH 11.9 % (12.0-15.0)
[2022-08-10 19:47] LABS: ALBUMIN 4.3 g/dL (3.2-5.5); ALBUMIN/GLOBULIN RATIO 1.5 (1.0-2.2); ALKALINE PHOSPHATASE 63 IU/L (42-121); ALT ALANINE AMINOTRANSFERASE 11 IU/L (10-60); AST ASPARTATE AMINOTRANSFERASE 16 IU/L (10-42); BILIRUBIN,TOTAL 0.5 mg/dL (0.2-1.0); BUN - BLOOD UREA NITROGEN 10 mg/dL (6-20); CALCIUM 9.7 mg/dL (8.5-10.3); CARBON DIOXIDE - CO2 32 mmol/L (21-32); CHLORIDE 97 mmol/L (101-111); CHOL/HDL RATIO 3.8 (<5.0); CHOLESTEROL 183 mg/dL; CREATININE 0.9 mg/dL (0.6-1.2); GFR - MDRD 91 (>89); GLUCOSE 104 mg/dL (70-100); HDL CHOLESTEROL 48 mg/dL; LDL CHOLESTEROL,CALCULATED 116 mg/dL; LDL/HDL RATIO 2.4 (<3.6); POTASSIUM 4.1 mmol/L (3.5-5.0); SODIUM 138 mmol/L (135-145); TOTAL PROTEIN 7.2 g/dL (6.7-8.2); TRIGLYCERIDES 97 mg/dL; VALPROIC ACID (DEPAKOTE) 123.2 ug/mL; VLDL CHOLESTEROL 19 mg/dL
[2022-08-10 19:56] LABS: THYROID STIMULATING HORMONE 2.02 uIU/mL (0.34-5.60)
== END 2022-08-10 13:20 | disposition home or self-care (01) ==
LOC: LAB.S 13:19
PROVIDERS: ATTEND Registered Nurse
DX: Z79.899 Other long term (current) drug therapy (principal); Z13.220 Encounter for screening for lipoid disorders; Z12.5 Encounter for screening for malignant neoplasm of prostate
CPT/HCPCS: 36415; 80053; 80061; 80164; 80175; 84443; 85025; G0103; 83721; 84153

== ENCOUNTER 2022-08-27 15:24 | Outpatient (CLI) | payer MEDICARE, MEDICAID | END 2022-08-27 15:25 | disposition critical access hospital (66) | LOC: EMS 15:24 | DX: R56.9 Unspecified convulsions (principal); S00.83XA Contusion of other part of head, initial encounter; W07.XXXA Fall from chair, initial encounter; Y92.89 Other specified places as the place of occurrence of the external cause | CPT/HCPCS: A0425; A0429 ==

== ENCOUNTER 2022-08-27 15:52 | Emergency (ER) | payer MEDICARE, MEDICAID ==
[2022-08-27 16:01] VITALS: BP 123/90
[2022-08-27] MEDS ORDERED: SODIUM CHLORIDE 0.9% 1,000 ML IV STA (16:04)
--- NOTE | 2022-08-27 16:04 | ED Physician Documentation ---
History of Present Illness - Stated complaint Stated Complaint: SZ - History obtained from History obtained from: EMS - Additonal information Additional information: 47-year-old male was brought to emergency department via EMS for evaluation of seizure activity. Patient is amnesic to the events. Reportedly he was standing in line at the food bank when he had a generalized tonic-clonic seizure that lasted approximately 60 to 90 seconds. This patient presents emergency department mildly lethargic but answering all questions appropriately. He does endorse cannabis as well as methamphetamine use. However he reports that he is always compliant with his Lamictal and Depakote. He did have a similar visit as this a number of weeks ago. Review of Systems Unable to obtain: AMS, Other (EMS, [facility] emergency department chart review) PD PAST MEDICAL HISTORY - Past Medical History Cardiovascular: None Respiratory: None Neuro: None, Seizure disorder Endocrine/Autoimmune: None GI: None : None HEENT: None Psych: None Musculoskeletal: None Derm: None - Past Surgical History Past Surgical History: No - Present Medications Home Medications: Ambulatory Orders Medication Instructions Recorded Confirmed lamoTRIgine [LaMICtal] 300 mg PO BID 11/22/13 03/06/20 risperiDONE [Risperdal] 3 mg PO DAILY PM 11/17/16 03/06/20 Divalproex Sodium 250 mg PO 03/06/20 Divalproex Sodium [Depakote] 1,500 mg PO DAILY 03/06/20 03/06/20 - Allergies Allergies/Adverse Reactions: Allergies Allergy/AdvReac Type Severity Reaction Status Date / Time No Known Drug Allergies Allergy Verified 02/23/21 12:33 - Social History Does the pt smoke?: Yes Smoking Status: Current every day smoker Does the pt drink ETOH?: No Does the pt have substance abuse?: Yes - Immunizations Immunizations are current?: Yes - POLST Patient has POLST: No PD ED PE NORMAL - General General: Alert and oriented X 3, No acute distress, Well developed/nourished - HEENT HEENT: Atraumatic, Moist mucous membranes, Pharynx benign, Other (Healing bruises on the left forehead and around the left eye) - Neck Neck: Supple, no meningeal sign, No adenopathy - Cardiac Cardiac: RRR, No murmur - Respiratory Respiratory: No respiratory distress, Clear bilaterally - Abdomen Abdomen: Normal bowel sounds, Soft - Derm Derm: Normal color, Warm and dry, No rash - Extremities Extremities: No deformity, Normal ROM s pain - Neuro Neuro: Alert and oriented X 3, 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, No motor deficit, No sensory deficit Eye Opening: Spontaneous Motor: Obeys Commands Verbal: Oriented GCS Score: 15 Results - Vitals Vitals: Vital Signs - 24 hr 08/27/22 08/27/22 15:55 16:00 Temperature 36.8 C Heart Rate 100 98 Respiratory 18 18 Rate Blood Pressure 123/90 H 123/90 H O2 Saturation 97 100 Oxygen O2 Source Room air - Labs Labs: Laboratory Tests 08/27/22 08/27/22 16:14 16:14 WBC 6.9 RBC 4.12 L Hgb 13.4 L Hct 40.5 L MCV 98.3 H MCH 32.5 H MCHC 33.1 RDW 11.9 L Plt Count 193 MPV 9.6 Neut # (Auto) 3.8 Lymph # (Auto) 2.1 Alexander # (Auto) 0.8 Eos # (Auto) 0.1 Baso # (Auto) 0.0 Absolute Nucleated RBC 0.00 Nucleated RBC % 0.0 Sodium 137 Potassium 3.5 Chloride 99 L Carbon Dioxide 24 Anion Gap 14.0 H BUN 9 Creatinine 0.9 Estimated GFR (MDRD) 91 Glucose 91 Calcium 8.9 Total Bilirubin 0.6 AST 22 ALT 16 Alkaline Phosphatase 54 Total Protein 6.6 L Albumin 3.8 Globulin 2.8 Albumin/Globulin Ratio 1.4 Lipase 34 Valproic Acid 77.5 PD Medical Decision Making - ED course Complexity details: reviewed results, considered differential, d/w patient ED course: 47-year-old male who has a known history of seizure disorder on valproic acid and lamotrigine presents to the emergency department after a seizure while standing in line at the [employer] bank. He does endorse cannabis as well as methamphetamine use. He reports he has been using his entire life and does not think it affects his seizure threshold. He was seen in this emergency department for similar a number of weeks ago at that time he had a fair amount of facial trauma that was CT subsequently was found to be negative. That bruising appears to be resolving. We allowed the patient a period of observation here in the emergency department and no further seizure activity was noted. He was given a liter of IV cr ystalloid. Initially when he presented he was mildly lethargic but after about 90 minutes of observation here in the emergency department he is alert, well-appearing and requesting to be discharged home. I did obtain a CBC and electrolytes. Per my interpretation there is no acute worrisome findings. He does have a therapeutic valproic acid level. Urine drug screen was deferred as the patient would test positive for cannabis and methamphetamines which he already endorses use of. I encouraged him to discontinue use as I believe it does contribute to his increased seizure activity. He is encouraged to follow closely with his primary care provider. Emergent return precautions were discussed for recurrent seizures Departure - Departure Disposition: Home, Self Care Clinical Impression: Seizures, Methamphetamine use Condition: Stable Record reviewed to determine appropriate education?: Yes Comments: You came to the emergency department today because you had a seizure while standing in line at the [employer] bank. Your valproic acid level is therapeutic. Thank you for taking your medications as you should. However as we discussed at the bedside illicit drug use such as methamphetamine use can lower your seizure threshold and make you more prone to seizures. I encourage you to quit if you are able. You can call the [facility] detox center in [place] and talk to them if you ever find that you are able to or wish to quit. Return to the ED if you find your symptoms are worsening.
[2022-08-27 16:22] LABS: BASOPHILS % (AUTO) 0.6 %; EOSINOPHILS # (AUTO) 0.1 10^3/uL (0.0-0.7); EOSINOPHILS % (AUTO) 1.2 %; HCT - HEMATOCRIT 40.5 % (42.0-52.0); HGB - HEMOGLOBIN 13.4 g/dL (14.0-18.0); LYMPHOCYTES # (AUTO) 2.1 10^3/uL (1.5-3.5); LYMPHOCYTES % (AUTO) 31.1 %; MEAN CORPUSCULAR HEMOGLOBIN 32.5 pg (27.0-31.0); MEAN CORPUSCULAR HGB CONC 33.1 g/dL (32.0-36.0); MEAN CORPUSCULAR VOLUME 98.3 fL (80.0-94.0); MEAN PLATELET VOLUME 9.6 fL (7.4-11.4); MONOCYTES # (AUTO) 0.8 10^3/uL (0.0-1.0); MONOCYTES % (AUTO) 12.1 %; NEUTROPHILS # (AUTO) 3.8 10^3/uL (1.5-6.6); NEUTROPHILS % (AUTO) 54.7 %; PLT - PLATELET COUNT 193 10^3/uL (130-450); RED BLOOD COUNT 4.12 10^6/uL (4.70-6.10); RED CELL DISTRIBUTION WIDTH 11.9 % (12.0-15.0); WHITE BLOOD COUNT 6.9 x10^3/uL (4.8-10.8)
[2022-08-27 16:36] LABS: ALBUMIN 3.8 g/dL (3.2-5.5); ALBUMIN/GLOBULIN RATIO 1.4 (1.0-2.2); ALKALINE PHOSPHATASE 54 IU/L (42-121); ALT ALANINE AMINOTRANSFERASE 16 IU/L (10-60); AST ASPARTATE AMINOTRANSFERASE 22 IU/L (10-42); BILIRUBIN,TOTAL 0.6 mg/dL (0.2-1.0); BUN - BLOOD UREA NITROGEN 9 mg/dL (6-20); CALCIUM 8.9 mg/dL (8.5-10.3); CARBON DIOXIDE - CO2 24 mmol/L (21-32); CHLORIDE 99 mmol/L (101-111); CREATININE 0.9 mg/dL (0.6-1.2); GFR - MDRD 91 (>89); GLUCOSE 91 mg/dL (70-100); LIPASE 34 U/L (22-51); POTASSIUM 3.5 mmol/L (3.5-5.0); SODIUM 137 mmol/L (135-145); TOTAL PROTEIN 6.6 g/dL (6.7-8.2); VALPROIC ACID (DEPAKOTE) 77.5 ug/mL
--- OUTSIDE RECORDS SUMMARY | 2022-08-27 16:36 | EXTERNAL MEDICAL SUMMARY RPT | Continuity of Care Document ---
:1975 Author Organization [facility] Address [address] [place] [address] Phone Care Team Providers Name Role Phone Unavailable Unavailable Unavailable Allergies No information. Encounters No information. Functional Status No information. Immunizations No information. Medications No information. Problems No information. Procedures No information. Results/Labs test date author facility value unit interpret ation Result panel 1 (unknown) (no date) (unknown) [facility] (no value[facility] Result panel 2 (unknown) (no date) (unknown) [facility] (no value) [facility] Result panel 3 (unknown) (no date) (unknown) [facility] (no value) [facility] Result panel 4 (unknown) (no date) (unknown) [facility] (no value[facility] Result panel 5 (unknown) (no date) (unknown) [facility] (no value) [facility] Result panel 6 (unknown) (no date) (unknown) [facility] (no value) [facility] Result panel 7 (unknown) (no date) (unknown) [facility] (no value) [facility] Result panel 8 (unknown) (no date) (unknown) [facility] (no value) [facility] Result panel 9 (unknown) (no date) (unknown) [facility] (no value) [facility] Result panel 10 (unknown) (no date) (unknown) [facility] (no value) [facility] Result panel 11 (unknown) (no date) (unknown) [facility] (no value) [facility] Result panel 12 (unknown) (no date) (unknown) [facility] (no value) [facility] Result panel 13 (unknown) (no date) (unknown) [facility] (no value) [facility] Result panel 14 (unknown) (no date) (unknown) [facility] (no value) [facility] Result panel 15 (unknown) (no date) (unknown) [facility] (no value) [facility] Result panel 16 (unknown) (no date) (unknown) [facility] (no value) [facility] Result panel 17 (unknown) (no date) (unknown) [facility] (no value) [facility] Result panel 18 (unknown) (no date) (unknown) [facility] (no value) [facility] Result panel 19 (unknown) (no date) (unknown) [facility] (no value) [facility] Result panel 20 (unknown) (no date) (unknown) [facility] (no value) [facility] Result panel 21 (unknown) (no date) (unknown) [facility] (no value) [facility] Result panel 22 (unknown) (no date) (unknown) [facility] (no value) [facility] Result panel 23 (unknown) (no date) (unknown) [facility] (no value) [facility] Result panel 24 (unknown) (no date) (unknown) [facility] (no value) [facility] Result panel 25 (unknown) (no date) (unknown) [facility] (no value) [facility] Result panel 26 (unknown) (no date) (unknown) [facility] (no value) [facility] Result panel 27 (unknown) (no date) (unknown) [facility] (no value) [facility] Result panel 28 (unknown) (no date) (unknown) [facility] (no value) [facility] Result panel 29 (unknown) (no date) (unknown) [facility] (no value) [facility] Result panel 30 (unknown) (no date) (unknown) [facility] (no value) [facility] Result panel 31 (unknown) (no date) (unknown) [facility] (no value) [facility] Result panel 32 (unknown) (no date) (unknown) [facility] (no value) [facility] Result panel 33 (unknown) (no date) (unknown) [facility] (no value) [facility] Result panel 34 (unknown) (no date) (unknown) [facility] (no value) [facility] Result panel 35 (unknown) (no date) (unknown) [facility] (no value) [facility] Result panel 36 (unknown) (no date) (unknown) [facility] (no value) [facility] Result panel 37 (unknown) (no date) (unknown) [facility] (no value) [facility] Result panel 38 (unknown) (no date) (unknown) [facility] (no value) [facility] Result panel 39 (unknown) (no date) (unknown) [facility] (no value) [facility] Result panel 40 (unknown) (no date) (unknown) [facility] (no value) [facility] Result panel 41 (unknown) (no date) (unknown) [facility] (no value) [facility] Result panel 42 (unknown) (no date) (unknown) [facility] (no value) [facility] Result panel 43 (unknown) (no date) (unknown) [facility] (no value) [facility] Result panel 44 (unknown) (no date) (unknown) [facility] (no value) [facility] Result panel 45 (unknown) (no date) (unknown) [facility] (no value) [facility] Result panel 46 (unknown) (no date) (unknown) [facility] (no value) [facility] Result panel 47 (unknown) (no date) (unknown) [facility] (no value) [facility] Result panel 48 (unknown) (no date) (unknown) [facility] (no value) [facility] Result panel 49 (unknown) (no date) (unknown) [facility] (no value) [facility] Result panel 50 (unknown) (no date) (unknown) [facility] (no value) [facility] Result panel 51 (unknown) (no date) (unknown) [facility] (no value) [facility] Result panel 52 (unknown) (no date) (unknown) [facility] (no value) [facility] Result panel 53 (unknown) (no date) (unknown) [facility] (no value) [facility] Result panel 54 (unknown) (no date) (unknown) [facility] (no value) [facility] Result panel 55 (unknown) (no date) (unknown) [facility] (no value) [facility] Result panel 56 (unknown) (no date) (unknown) [facility] (no value) [facility] Result panel 57 (unknown) (no date) (unknown) [facility] (no value) [facility] Result panel 58 (unknown) (no date) (unknown) [facility] (no value) [facility] Result panel 59 (unknown) (no date) (unknown) [facility] (no value) [facility] Result panel 60 (unknown) (no date) (unknown) [facility] (no value) [facility] Result panel 61 (unknown) (no date) (unknown) [facility] (no value) [facility] Result panel 62 (unknown) (no date) (unknown) [facility] (no value) [facility] Result panel 63 (unknown) (no date) (unknown) [facility] (no value) [facility] Result panel 64 (unknown) (no date) (unknown) [facility] (no value) [facility] Result panel 65 (unknown) (no date) (unknown) [facility] (no value) [facility] Result panel 66 (unknown) (no date) (unknown) [facility] (no value) [facility] Result panel 67 (unknown) (no date) (unknown) [facility] (no value) [facility] Result panel 68 (unknown) (no date) (unknown) [facility] (no value) [facility] Result panel 69 (unknown) (no date) (unknown) [facility] (no value) [facility] Result panel 70 (unknown) (no date) (unknown) [facility] (no value) [facility] Result panel 71 (unknown) (no date) (unknown) [facility] (no value) [facility] Result panel 72 (unknown) (no date) (unknown) [facility] (no value) [facility] Result panel 73 (unknown) (no date) (unknown) [facility] (no value) [facility] Result panel 74 (unknown) (no date) (unknown) [facility] (no value) [facility] Result panel 75 (unknown) (no date) (unknown) [facility] (no value) [facility] Result panel 76 (unknown) (no date) (unknown) [facility] (no value) [facility] Result panel 77 (unknown) (no date) (unknown) [facility] (no value) [facility] Result panel 78 (unknown) (no date) (unknown) [facility] (no value) [facility] Result panel 79 (unknown) (no date) (unknown) [facility] (no value) [facility] Result panel 80 (unknown) (no date) (unknown) [facility] (no value) [facility] Result panel 81 (unknown) (no date) (unknown) [facility] (no value) [facility] Result panel 82 (unknown) (no date) (unknown) [facility] (no value) [facility] Result panel 83 (unknown) (no date) (unknown) [facility] (no value) [facility] Result panel 84 (unknown) (no date) (unknown) [facility] (no value) [facility] Result panel 85 (unknown) (no date) (unknown) [facility] (no value) [facility] Result panel 86 (unknown) (no date) (unknown) [facility] (no value) [facility] Result panel 87 (unknown) (no date) (unknown) [facility] (no value) [facility] Result panel 88 (unknown) (no date) (unknown) [facility] (no value) [facility] Result panel 89 (unknown) (no date) (unknown) [facility] (no value) [facility] Result panel 90 (unknown) (no date) (unknown) [facility] (no value) [facility] Result panel 91 (unknown) (no date) (unknown) [facility] (no value) [facility] Result panel 92 (unknown) (no date) (unknown) [facility] (no value) [facility] Result panel 93 (unknown) (no date) (unknown) [facility] (no value) [facility] Result panel 94 (unknown) (no date) (unknown) [facility] (no value) [facility] Result panel 95 (unknown) (no date) (unknown) [facility] (no value) [facility] Result panel 96 (unknown) (no date) (unknown) [facility] (no value) [facility] Result panel 97 (unknown) (no date) (unknown) [facility] (no value) [facility] Result panel 98 (unknown) (no date) (unknown) [facility] (no value) [facility] Result panel 99 (unknown) (no date) (unknown) [facility] (no value) [facility] Result panel 100 (unknown) (no date) (unknown) [facility] (no value) [facility] Result panel 101 (unknown) (no date) (unknown) [facility] (no value) [facility] Result panel 102 (unknown) (no date) (unknown) [facility] (no value) [facility] Result panel 103 (unknown) (no date) (unknown) [facility] (no value) [facility] Result panel 104 (unknown) (no date) (unknown) [facility] (no value) [facility] Result panel 105 (unknown) (no date) (unknown) [facility] (no value) [facility] Result panel 106 (unknown) (no date) (unknown) [facility] (no value) [facility] Result panel 107 (unknown) (no date) (unknown) [facility] (no value) [facility] Result panel 108 (unknown) (no date) (unknown) [facility] (no value) [facility] Result panel 109 (unknown) (no date) (unknown) [facility] (no value) [facility] Result panel 110 (unknown) (no date) (unknown) [facility] (no value) [facility] Result panel 111 (unknown) (no date) (unknown) [facility] (no value) [facility] Result panel 112 (unknown) (no date) (unknown) [facility] (no value) [facility] Result panel 113 (unknown) (no date) (unknown) [facility] (no value) [facility] Result panel 114 (unknown) (no date) (unknown) [facility] (no value) [facility] Result panel 115 (unknown) (no date) (unknown) [facility] (no value) [facility] Result panel 116 (unknown) (no date) (unknown) [facility] (no value) [facility] Result panel 117 (unknown) (no date) (unknown) [facility] (no value) [facility] Result panel 118 (unknown) (no date) (unknown) [facility] (no value) [facility] Result panel 119 (unknown) (no date) (unknown) [facility] (no value) [facility] Result panel 120 (unknown) (no date) (unknown) [facility] (no value) [facility] Result panel 121 (unknown) (no date) (unknown) [facility] (no value) [facility] Result panel 122 (unknown) (no date) (unknown) [facility] (no value) [facility] Result panel 123 (unknown) (no date) (unknown) [facility] (no value) [facility] Result panel 124 (unknown) (no date) (unknown) [facility] (no value) [facility] Result panel 125 (unknown) (no date) (unknown) [facility] (no value) [facility] Result panel 126 (unknown) (no date) (unknown) [facility] (no value) [facility] Result panel 127 (unknown) (no date) (unknown) [facility] (no value) [facility] Result panel 128 (unknown) (no date) (unknown) [facility] (no value) [facility] Result panel 129 (unknown) (no date) (unknown) [facility] (no value) [facility] Result panel 130 (unknown) (no date) (unknown) [facility] (no value) [facility] Result panel 131 (unknown) (no date) (unknown) [facility] (no value) [facility] Result panel 132 (unknown) (no date) (unknown) [facility] (no value) [facility] Result panel 133 (unknown) (no date) (unknown) [facility] (no value) [facility] Result panel 134 (unknown) (no date) (unknown) [facility] (no value) [facility] Result panel 135 (unknown) (no date) (unknown) [facility] (no value) [facility] Result panel 136 (unknown) (no date) (unknown) [facility] (no value) [facility] Result panel 137 (unknown) (no date) (unknown) [facility] (no value) [facility] Result panel 138 (unknown) (no date) (unknown) [facility] (no value) [facility] Result panel 139 (unknown) (no date) (unknown) [facility] (no value) [facility] Result panel 140 (unknown) (no date) (unknown) [facility] (no value) [facility] Result panel 141 (unknown) (no date) (unknown) [facility] (no value) [facility] Result panel 142 (unknown) (no date) (unknown) [facility] (no value) [facility] Result panel 143 (unknown) (no date) (unknown) [facility] (no value) [facility] Result panel 144 (unknown) (no date) (unknown) [facility] (no value) [facility] Result panel 145 (unknown) (no date) (unknown) [facility] (no value) [facility] Result panel 146 (unknown) (no date) (unknown) [facility] (no value) [facility] Result panel 147 (unknown) (no date) (unknown) [facility] (no value) [facility] Result panel 148 (unknown) (no date) (unknown) [facility] (no value) [facility] Result panel 149 (unknown) (no date) (unknown) [facility] (no value) [facility] Result panel 150 (unknown) (no date) (unknown) [facility] (no value) [facility] Result panel 151 (unknown) (no date) (unknown) [facility] (no value) [facility] Result panel 152 (unknown) (no date) (unknown) [facility] (no value) [facility] Result panel 153 (unknown) (no date) (unknown) [facility] (no value) [facility] Result panel 154 (unknown) (no date) (unknown) [facility] (no value) [facility] Result panel 155 (unknown) (no date) (unknown) [facility] (no value) [facility] Result panel 156 (unknown) (no date) (unknown) [facility] (no value) [facility] Result panel 157 (unknown) (no date) (unknown) [facility] (no value) [facility] Result panel 158 (unknown) (no date) (unknown) [facility] (no value) [facility] Result panel 159 (unknown) (no date) (unknown) [facility] (no value) [facility] Result panel 160 (unknown) (no date) (unknown) [facility] (no value) [facility] Result panel 161 (unknown) (no date) (unknown) [facility] (no value) [facility] Result panel 162 (unknown) (no date) (unknown) [facility] (no value) [facility] Result panel 163 (unknown) (no date) (unknown) [facility] (no value) [facility] Result panel 164 (unknown) (no date) (unknown) [facility] (no value) [facility] Result panel 165 (unknown) (no date) (unknown) [facility] (no value) [facility] Result panel 166 (unknown) (no date) (unknown) [facility] (no value) [facility] Result panel 167 (unknown) (no date) (unknown) [facility] (no value) [facility] Result panel 168 (unknown) (no date) (unknown) [facility] (no value) [facility] Result panel 169 (unknown) (no date) (unknown) Walk-In (no value) [facility] Result panel 170 (unknown) (no date) (unknown) Walk-In (no value) [facility] Result panel 171 (unknown) (no date) (unknown) Walk-In (no value) [facility] Result panel 172 (unknown) (no date) (unknown) Walk-In (no value) [facility] Result panel 173 (unknown) (no date) (unknown) [facility]-In (no value) [facility] Result panel 174 (unknown) (no date) (unknown) [facility]-In (no value) [facility] Result panel 175 (unknown) (no date) (unknown) [facility]-In (no value) [facility] Result panel 176 (unknown) (no date) (unknown) Walk-In (no value) [facility] Result panel 177 (unknown) (no date) (unknown) [facility]-In (no value) [facility] Result panel 178 (unknown) (no date) (unknown) [facility]-In (no value) [facility] Result panel 179 (unknown) (no date) (unknown) Walk-In (no value) [facility] Result panel 180 (unknown) (no date) (unknown) [facility] (no value) [facility] Result panel 181 (unknown) (no date) (unknown) [facility] (no value) [facility] Result panel 182 (unknown) (no date) (unknown) Walk-[facility] (no value) [facility] Result panel 183 (unknown) (no date) (unknown) [facility] (no value) [facility] Result panel 184 (unknown) (no date) (unknown) [facility] (no value) [facility] Result panel 185 (unknown) (no date) (unknown) Walk-In (no value) [facility] Result panel 186 (unknown) (no date) (unknown) Walk-In (no value) [facility] Result panel 187 (unknown) (no date) (unknown) [facility] (no value) [facility] Result panel 188 (unknown) (no date) (unknown) [facility] (no value) [facility] Result panel 189 (unknown) (no date) (unknown) Walk-[facility] (no value) [facility] Result panel 190 (unknown) (no date) (unknown) Walk-In (no value) [facility] Result panel 191 (unknown) (no date) (unknown) Walk-In (no value) [facility] Result panel 192 (unknown) (no date) (unknown) [facility] (no value) [facility] Result panel 193 (unknown) (no date) (unknown) [facility] (no value) [facility] Result panel 194 (unknown) (no date) (unknown) [facility] (no value) [facility] Result panel 195 (unknown) (no date) (unknown) [facility] (no value) [facility] Result panel 196 (unknown) (no date) (unknown) [facility] (no value) [facility] Result panel 197 (unknown) (no date) (unknown) [facility] (no value) [facility] Result panel 198 (unknown) (no date) (unknown) [facility] (no value) [facility] Result panel 199 (unknown) (no date) (unknown) Walk-In (no value) [facility] Result panel 200 (unknown) (no date) (unknown) [facility] (no value) [facility] Result panel 201 (unknown) (no date) (unknown) [facility] (no value) [facility] Result panel 202 (unknown) (no date) (unknown) [facility]-In (no value) [facility] Result panel 203 (unknown) (no date) (unknown) [facility] (no value) [facility] Result panel 204 (unknown) (no date) (unknown) Walk-In (no value) [facility] Result panel 205 (unknown) (no date) (unknown) Walk-In (no value) [facility] Result panel 206 (unknown) (no date) (unknown) Walk-In (no value) [facility] Result panel 207 (unknown) (no date) (unknown) Walk-In (no value) [facility] Result panel 208 (unknown) (no date) (unknown) Walk-In (no value) [facility] Result panel 209 (unknown) (no date) (unknown) [facility] (no value) [facility] Result panel 210 (unknown) (no date) (unknown) [facility]-In (no value) [facility] Result panel 211 (unknown) (no date) (unknown) Walk-In (no value) [facility] Result panel 212 (unknown) (no date) (unknown) Walk-[facility] (no value) [facility] Result panel 213 (unknown) (no date) (unknown) Walk-In (no value) [facility] Result panel 214 (unknown) (no date) (unknown) [facility] (no value) [facility] Result panel 215 (unknown) (no date) (unknown) Walk-[facility] (no value) [facility] Result panel 216 (unknown) (no date) (unknown) Walk-[facility] (no value) [facility] Result panel 217 (unknown) (no date) (unknown) [facility] (no value) [facility] Result panel 218 (unknown) (no date) (unknown) Walk-In (no value) [facility] Result panel 219 (unknown) (no date) (unknown) Walk-In (no value) [facility] Result panel 220 (unknown) (no date) (unknown) Walk-In (no value) [facility] Result panel 221 (unknown) (no date) (unknown) Walk-In (no value) [facility] Result panel 222 (unknown) (no date) (unknown) Walk-In (no value) [facility] Result panel 223 (unknown) (no date) (unknown) Walk-In (no value) [facility] Result panel 224 (unknown) (no date) (unknown) Walk-[facility] (no value) [facility] Result panel 225 (unknown) (no date) (unknown) Walk-[facility] (no value) [facility] Result panel 226 (unknown) (no date) (unknown) [facility] (no value) [facility] Result panel 227 (unknown) (no date) (unknown) Walk-[facility] (no value) [facility] Result panel 228 (unknown) (no date) (unknown) [facility] (no value) [facility] Result panel 229 (unknown) (no date) (unknown) Walk-[facility] (no value) [facility] Result panel 230 (unknown) (no date) (unknown) [facility] (no value) [facility] Result panel 231 (unknown) (no date) (unknown) [facility] (no value) [facility] Result panel 232 (unknown) (no date) (unknown) [facility] (no value) [facility] Result panel 233 (unknown) (no date) (unknown) [facility] (no value) [facility] Result panel 234 (unknown) (no date) (unknown) [facility] (no value) [facility] Result panel 235 (unknown) (no date) (unknown) [facility] (no value) [facility] Result panel 236 (unknown) (no date) (unknown) [facility] (no value) [facility] Result panel 237 (unknown) (no date) (unknown) [facility] (no value) [facility] Result panel 238 (unknown) (no date) (unknown) [facility] (no value) [facility] Result panel 239 (unknown) (no date) (unknown) [facility] (no value) [facility] Result panel 240 (unknown) (no date) (unknown) Walk-[facility] (no value) [facility] Result panel 241 (unknown) (no date) (unknown) Walk-In (no value) [facility] Result panel 242 (unknown) (no date) (unknown) Walk-In (no value) [facility] Result panel 243 (unknown) (no date) (unknown) Walk-In (no value) [facility] Result panel 244 (unknown) (no date) (unknown) Walk-[facility] (no value) [facility] Result panel 245 (unknown) (no date) (unknown) Walk-[facility] (no value) [facility] Result panel 246 (unknown) (no date) (unknown) [facility] (no value) [facility] Result panel 247 (unknown) (no date) (unknown) [facility] (no value) [facility] Result panel 248 (unknown) (no date) (unknown) Walk-In (no value) [facility] Result panel 249 (unknown) (no date) (unknown) Walk-In (no value) [facility] Result panel 250 (unknown) (no date) (unknown) Walk-[facility] (no value) [facility] Result panel 251 (unknown) (no date) (unknown) Walk-[facility] (no value) [facility] Result panel 252 (unknown) (no date) (unknown) Walk-[facility] (no value) [facility] Result panel 253 (unknown) (no date) (unknown) Walk-[facility] (no value) [facility] Result panel 254 (unknown) (no date) (unknown) Walk-[facility] (no value) [facility] Result panel 255 (unknown) (no date) (unknown) [facility] (no value) [facility] Result panel 256 (unknown) (no date) (unknown) Walk-[facility] (no value) [facility] Result panel 257 (unknown) (no date) (unknown) [facility] (no value) [facility] Result panel 258 (unknown) (no date) (unknown) [facility] (no value) [facility] Result panel 259 (unknown) (no date) (unknown) [facility] (no value) [facility] Result panel 260 (unknown) (no date) (unknown) [facility] (no value) [facility] Result panel 261 (unknown) (no date) (unknown) [facility] (no value) [facility] Result panel 262 (unknown) (no date) (unknown) Walk-[facility] (no value) [facility] Result panel 263 (unknown) (no date) (unknown) Walk-[facility] (no value) [facility] Result panel 264 (unknown) (no date) (unknown) Walk-[facility] (no value) [facility] Result panel 265 (unknown) (no date) (unknown) [facility] (no value) [facility] Result panel 266 (unknown) (no date) (unknown) [facility] (no value) [facility] Result panel 267 (unknown) (no date) (unknown) [facility] (no value) [facility] Result panel 268 (unknown) (no date) (unknown) Walk-In (no value) [facility] Result panel 269 (unknown) (no date) (unknown) Walk-[facility] (no value) [facility] Result panel 270 (unknown) (no date) (unknown) Walk-[facility] (no value) [facility] Result panel 271 (unknown) (no date) (unknown) Walk-[facility] (no value) [facility] Result panel 272 (unknown) (no date) (unknown) [facility] (no value) [facility] Result panel 273 (unknown) (no date) (unknown) Walk-In (no value) [facility] Result panel 274 (unknown) (no date) (unknown) Walk-[facility] (no value) [facility] Result panel 275 (unknown) (no date) (unknown) [facility]-In (no value) [facility] Result panel 276 (unknown) (no date) (unknown) [facility] (no value) [facility] Result panel 277 (unknown) (no date) (unknown) [facility] (no value) [facility] Result panel 278 (unknown) (no date) (unknown) [facility] (no value) [facility] Result panel 279 (unknown) (no date) (unknown) Walk-[facility] (no value) [facility] Result panel 280 (unknown) (no date) (unknown) [facility] (no value) [facility] Result panel 281 (unknown) (no date) (unknown) Walk-[facility] (no value) [facility] Result panel 282 (unknown) (no date) (unknown) Walk-In (no value) [facility] Result panel 283 (unknown) (no date) (unknown) Walk-[facility] (no value) [facility] Result panel 284 (unknown) (no date) (unknown) Walk-[facility] (no value) [facility] Result panel 285 (unknown) (no date) (unknown) [facility] (no value) [facility] Result panel 286 (unknown) (no date) (unknown) [facility] (no value) [facility] Result panel 287 (unknown) (no date) (unknown) [facility] (no value) [facility] Result panel 288 (unknown) (no date) (unknown) [facility] (no value) [facility] Result panel 289 (unknown) (no date) (unknown) Walk-[facility] (no value) [facility] Result panel 290 (unknown) (no date) (unknown) [facility] (no value) [facility] Result panel 291 (unknown) (no date) (unknown) Walk-[facility] (no value) [facility] Result panel 292 (unknown) (no date) (unknown) [facility] (no value) [facility] Result panel 293 (unknown) (no date) (unknown) Walk-[facility] (no value) [facility] Result panel 294 (unknown) (no date) (unknown) Walk-[facility] (no value) [facility] Result panel 295 (unknown) (no date) (unknown) Walk-[facility] (no value) [facility] Result panel 296 (unknown) (no date) (unknown) [facility] (no value) [facility] Result panel 297 (unknown) (no date) (unknown) [facility] (no value) [facility] Result panel 298 (unknown) (no date) (unknown) [facility] (no value) [facility] Result panel 299 (unknown) (no date) (unknown) [facility] (no value) [facility] Result panel 300 (unknown) (no date) (unknown) Walk-[facility] (no value) [facility] Result panel 301 (unknown) (no date) (unknown) Walk-[facility] (no value) [facility] Result panel 302 (unknown) (no date) (unknown) Walk-[facility] (no value) [facility] Result panel 303 (unknown) (no date) (unknown) [facility] (no value) [facility] Result panel 304 (unknown) (no date) (unknown) [facility] (no value) [facility] Result panel 305 (unknown) (no date) (unknown) Walk-[facility] (no value) [facility] Result panel 306 (unknown) (no date) (unknown) [facility] (no value) [facility] Result panel 307 (unknown) (no date) (unknown) Walk-[facility] (no value) [facility] Result panel 308 (unknown) (no date) (unknown) Walk-[facility] (no value) [facility] Result panel 309 (unknown) (no date) (unknown) [facility] (no value) [facility] Result panel 310 (unknown) (no date) (unknown) Walk-[facility] (no value) [facility] Result panel 311 (unknown) (no date) (unknown) Walk-In (no value) [facility] Result panel 312 (unknown) (no date) (unknown) Walk-[facility] (no value) [facility] Result panel 313 (unknown) (no date) (unknown) Walk-In (no value) [facility] Result panel 314 (unknown) (no date) (unknown) Walk-[facility] (no value) [facility] Result panel 315 (unknown) (no date) (unknown) [facility] (no value) [facility] Result panel 316 (unknown) (no date) (unknown) [facility] (no value) [facility] Result panel 317 (unknown) (no date) (unknown) [facility] (no value) [facility] Result panel 318 (unknown) (no date) (unknown) [facility] (no value) [facility] Result panel 319 (unknown) (no date) (unknown) [facility] (no value) [facility] Result panel 320 (unknown) (no date) (unknown) [facility] (no value) [facility] Result panel 321 (unknown) (no date) (unknown) [facility] (no value) [facility] Result panel 322 (unknown) (no date) (unknown) [facility] (no value) [facility] Result panel 323 (unknown) (no date) (unknown) [facility] (no value) [facility] Result panel 324 (unknown) (no date) (unknown) Walk-In (no value) [facility] Result panel 325 (unknown) (no date) (unknown) [facility] (no value) [facility] Result panel 326 (unknown) (no date) (unknown) Walk-[facility] (no value) [facility] Result panel 327 (unknown) (no date) (unknown) Walk-[facility] (no value) [facility] Result panel 328 (unknown) (no date) (unknown) Walk-[facility] (no value) [facility] Result panel 329 (unknown) (no date) (unknown) [facility] (no value) [facility] Result panel 330 (unknown) (no date) (unknown) [facility] (no value) [facility] Result panel 331 (unknown) (no date) (unknown) Walk-[facility] (no value) [facility] Result panel 332 (unknown) (no date) (unknown) Walk-[facility] (no value) [facility] Result panel 333 (unknown) (no date) (unknown) Walk-[facility] (no value) [facility] Result panel 334 (unknown) (no date) (unknown) [facility]-In (no value) [facility] Result panel 335 (unknown) (no date) (unknown) [facility]-In (no value) [facility] Result panel 336 (unknown) (no date) (unknown) Walk-[facility] (no value) [facility] Result panel 337 (unknown) (no date) (unknown) Walk-In (no value) [facility] Result panel 338 (unknown) (no date) (unknown) Walk-In (no value) [facility] Result panel 339 (unknown) (no date) (unknown) Walk-[facility] (no value) [facility] Result panel 340 (unknown) (no date) (unknown) Walk-In (no value) [facility] [facility] Result panel 341 (unknown) (no date) (unknown) Walk-In (no value) (units [facility]own[facility] Primary unknown) [facility] Result panel 342 (unknown) (no date) (unknown) Walk-In (no value) (units ([facility] nown) [facility] Primary unknown) [facility] Result panel 343 (unknown) (no date) (unknown) Walk-In (no value) (units ([facility] nown) [facility] Primary unknown) [facility] Result panel 344 (unknown) (no date) (unknown) Walk-In (no value) (units ([facility] nown) [facility] Primary unknown) [facility] Result panel 345 (unknown) (no date) (unknown) Walk-In (no value) (units ([facility] nown) [facility] Primary unknown) [facility] Result panel 346 (unknown) (no date) (unknown) Walk-In (no value) (units ([facility]own) [facility] Primary unknown) [facility] Result panel 347 (unknown) (no date) (unknown) Walk-In (no value) (units ([facility] nown) [facility] Primary unknown) [facility] Result panel 348 (unknown) (no date) (unknown) Walk-In (no value) (units ([facility]own) [facility] Primary unknown) [facility] Result panel 349 (unknown) (no date) (unknown) Walk-In (no value) (units ([facility]own) [facility] Primary unknown) [facility] Result panel 350 (unknown) (no date) (unknown) Walk-In (no value) (units ([facility]own) [facility] Primary unknown) [facility] Result panel 351 (unknown) (no date) (unknown) Walk-In (no value) (units ([facility]own) [facility] Primary unknown) [facility] Result panel 352 (unknown) (no date) (unknown) Walk-In (no value) (units ([facility]own) [facility] Primary unknown) [facility] Result panel 353 (unknown) (no date) (unknown) Walk-In (no value) (units ([facility]own) [facility] Primary unknown) [facility] Result panel 354 (unknown) (no date) (unknown) Walk-In (no value) (units ([facility]own) [facility] Primary unknown) [facility] Result panel 355 (unknown) (no date) (unknown) Walk-In (no value) (units ([facility]own) [facility] Primary unknown) [facility] Result panel 356 (unknown) (no date) (unknown) Walk-In (no value) (units ([facility]own) [facility] Primary unknown) [facility] Result panel 357 (unknown) (no date) (unknown) Walk-In (no value) (units ([facility]own) [facility] Primary unknown) [facility] Result panel 358 (unknown) (no date) (unknown) Walk-In (no value) (units ([facility]own) [facility] Primary unknown) [facility] Result panel 359 (unknown) (no date) (unknown) Walk-In (no value) (units ([facility]own) [facility] Primary unknown) [facility] Result panel 360 (unknown) (no date) (unknown) Walk-In (no value) (units ([facility]own) [facility] Primary unknown) [facility] Result panel 361 (unknown) (no date) (unknown) Walk-In (no value) (units ([facility] nown) [facility] Primary unknown) [facility] Result panel 362 (unknown) (no date) (unknown) Walk-In (no value) (units ([facility]own) [facility] Primary unknown) [facility] Result panel 363 (unknown) (no date) (unknown) Walk-In (no value) (units ([facility]own) [facility] Primary unknown) [facility] Result panel 364 (unknown) (no date) (unknown) Walk-In (no value) (units ([facility]own) [facility] Primary unknown) [facility] Result panel 365 (unknown) (no date) (unknown) Walk-In (no value) (units ([facility]own) [facility] Primary unknown) [facility] Result panel 366 (unknown) (no date) (unknown) Walk-In (no value) (units ([facility]own) [facility] Primary unknown) [facility] Result panel 367 (unknown) (no date) (unknown) Walk-In (no value) (units ([facility]own) [facility] Primary unknown) [facility] Result panel 368 (unknown) (no date) (unknown) Walk-In (no value) (units ([facility] nown) [facility] Primary unknown) [facility] Result panel 369 (unknown) (no date) (unknown) Walk-In (no value) (units ([facility]own) [facility] Primary unknown) [facility] Social History No information. Vital Signs No information.
== END 2022-08-27 17:41 | disposition home or self-care (01) ==
LOC: EDUNIT# → ED 15:52
DX: R56.9 Unspecified convulsions (principal); F15.90 Other stimulant use, unspecified, uncomplicated; F17.200 Nicotine dependence, unspecified, uncomplicated
CPT/HCPCS: 36415; 80053; 80164; 80175; 83690; 85025; 99283; 99284

== ENCOUNTER 2023-03-29 21:42 | Outpatient (CLI) | payer MEDICARE | END 2023-03-29 21:43 | disposition critical access hospital (66) | LOC: EMS 21:42 | DX: R46.89 Other symptoms and signs involving appearance and behavior (principal) | CPT/HCPCS: A0425; A0429 ==

== ENCOUNTER 2023-03-29 22:05 | Emergency (ER) | payer MEDICAID, MEDICARE ==
[2023-03-29] MEDS ORDERED: MIDAZOLAM 10 MG/5 ML UDC PO STA (22:34)
--- NOTE | 2023-03-29 22:38 | ED Physician Documentation ---
PD HPI MHE - Stated complaint Stated Complaint: MHE - Chief complaint Chief Complaint: MHE - History obtained from History obtained from: Patient, EMS - Additional information Additional information: 47-year-old man, brought in by EMS after yelling loudly at a fan time across the street. Patient has history of methamphetamine abuse, seizure disorder. Denies SI HI but appears to be experiencing hallucinations per EMS on route. PD PAST MEDICAL HISTORY - Past Medical History Cardiovascular: None Respiratory: None Neuro: None, Seizure disorder Endocrine/Autoimmune: None GI: None : None HEENT: None Psych: None Musculoskeletal: None Derm: None - Past Surgical History Past Surgical History: No - Present Medications Home Medications: Ambulatory Orders Medication Instructions Recorded Confirmed lamoTRIgine [LaMICtal] 300 mg PO BID 11/22/13 03/30/23 risperiDONE [Risperdal] 3 mg PO DAILY PM 11/17/16 03/30/23 Divalproex Sodium [Depakote] 500 mg PO QPM 03/06/20 03/30/23 - Allergies Allergies/Adverse Reactions: Allergies Allergy/AdvReac Type Severity Reaction Status Date / Time No Known Drug Allergies Allergy Verified 03/30/23 02:17 - Social History Does the pt smoke?: Yes Smoking Status: Current every day smoker Does the pt drink ETOH?: No Does the pt have substance abuse?: Yes - Immunizations Immunizations are current?: Yes - POLST Patient has POLST: No PD ED PE NORMAL - Vitals Vital signs reviewed: Yes - General General: No acute distress, Other (alert, disheveled appearing, possibly intoxicated) - HEENT HEENT: Atraumatic, PERRL, EOMI - Neck Neck: Supple, no meningeal sign - Cardiac Cardiac: RRR - Respiratory Respiratory: No respiratory distress, Clear bilaterally - Abdomen Abdomen: Non tender, Non distended - Derm Derm: Normal color, Warm and dry - Extremities Extremities: No deformity - Psych Psych: Other (bizarre affect) Results - Vitals Vitals: Vital Signs - 24 hr 03/29/23 03/30/23 03/30/23 22:25 01:16 02:13 Temperature 36.3 C L Heart Rate 96 86 76 Respiratory 16 16 16 Rate Blood Pressure 142/93 H 126/83 H O2 Saturation 98 100 96 Oxygen O2 Source Room air - Labs Labs: Laboratory Tests 03/29/23 03/29/23 03/30/23 22:49 22:49 01:58 WBC 8.2 RBC 4.73 Hgb 15.3 Hct 47.0 MCV 99.4 H MCH 32.3 H MCHC 32.6 RDW 11.8 L Plt Count 178 MPV 10.3 Neut # (Auto) 4.1 Lymph # (Auto) 2.9 [place] # (Auto) 1.0 Eos # (Auto) 0.1 Baso # (Auto) 0.0 Absolute Nucleated RBC 0.00 Nucleated RBC % 0.0 Sodium 139 Potassium 3.8 Chloride 103 Carbon Dioxide 25 Anion Gap 11.0 BUN 16 Creatinine 1.1 Estimated GFR (MDRD) 72 L Glucose 92 Calcium 9.6 Magnesium 2.3 Total Bilirubin 0.5 AST 26 ALT 26 Alkaline Phosphatase 56 Total Creatine Kinase 195 Total Protein 7.5 Albumin 4.8 Globulin 2.7 Albumin/Globulin Ratio 1.8 Lipase 29 TSH 2.25 Urine Color YELLOW Urine Clarity CLEAR Urine pH 7.0 Ur Specific [place] 1.020 Urine Protein TRACE Urine Glucose (UA) NEGATIVE Urine Ketones NEGATIVE Urine Occult Blood NEGATIVE Urine Nitrite NEGATIVE Urine Bilirubin NEGATIVE Urine Urobilinogen 0.2 (NORMAL) Ur Leukocyte Esterase NEGATIVE Ur Microscopic Review NOT INDICATED Urine Culture Comments NOT INDICATED Salicylates < 1.5 Urine Opiates Screen NEGATIVE Ur Oxycodone Screen NEGATIVE Urine Methadone Screen NEGATIVE Ur Propoxyphene Screen NEGATIVE Acetaminophen 0.3 Ur Barbiturates Screen NEGATIVE Ur Tricyclics Screen NEGATIVE Ur Phencyclidine Scrn NEGATIVE Ur Amphetamine Screen POSITIVE H U Methamphetamines Scrn POSITIVE H U Benzodiazepines Scrn NEGATIVE Urine Cocaine Screen NEGATIVE U Cannabinoids Screen POSITIVE H Ethyl Alcohol < 10.0 PD Medical Decision Making - ED course ED course: 47-year-old man with hx meth abuse p/w AVH. Patient is calm and cooperative in the emergency department, was provided with oral Versed as a sleep aid. Plan to undergo mental health medical clearance and mental health eval by [facility] in AM. Note at 3am patient was insistent he wanted to leave to smoke a cigarette. He is now coherent, denies si/hi/avh and states he can take the bus. plan to discharge home, recommended abstinence from meth in future to patient. Departure - Departure Disposition: 01 Home, Self Care Clinical Impression: Drug abuse Condition: Stable Instructions: ED Drug Abuse General Comments: You were seen in the emergency department for multidrug abuse. Please follow-up with your primary care provider and return to the emergency department if you have any new or worsening symptoms or other concerns. Forms: PCP List
[2023-03-29 22:51] LABS: BASOPHILS % (AUTO) 0.5 %; EOSINOPHILS # (AUTO) 0.1 10^3/uL (0.0-0.7); EOSINOPHILS % (AUTO) 1.5 %; HGB - HEMOGLOBIN 15.3 g/dL (14.0-18.0); LYMPHOCYTES # (AUTO) 2.9 10^3/uL (1.5-3.5); LYMPHOCYTES % (AUTO) 35.4 %; MEAN CORPUSCULAR HEMOGLOBIN 32.3 pg (27.0-31.0); MEAN CORPUSCULAR HGB CONC 32.6 g/dL (32.0-36.0); MEAN CORPUSCULAR VOLUME 99.4 fL (80.0-94.0); MEAN PLATELET VOLUME 10.3 fL (7.4-11.4); MONOCYTES % (AUTO) 11.8 %; NEUTROPHILS # (AUTO) 4.1 10^3/uL (1.5-6.6); NEUTROPHILS % (AUTO) 50.6 %; PLT - PLATELET COUNT 178 10^3/uL (130-450); RED BLOOD COUNT 4.73 10^6/uL (4.70-6.10); RED CELL DISTRIBUTION WIDTH 11.8 % (12.0-15.0); WHITE BLOOD COUNT 8.2 x10^3/uL (4.8-10.8)
[2023-03-29 23:07] LABS: ALBUMIN 4.8 g/dL (3.2-5.5); ALBUMIN/GLOBULIN RATIO 1.8 (1.0-2.2); ALKALINE PHOSPHATASE 56 IU/L (42-121); ALT ALANINE AMINOTRANSFERASE 26 IU/L (10-60); AST ASPARTATE AMINOTRANSFERASE 26 IU/L (10-42); BILIRUBIN,TOTAL 0.5 mg/dL (0.2-1.0); BUN - BLOOD UREA NITROGEN 16 mg/dL (6-20); CALCIUM 9.6 mg/dL (8.5-10.3); CARBON DIOXIDE - CO2 25 mmol/L (21-32); CHLORIDE 103 mmol/L (101-111); CK- CREATINE KINASE 195 IU/L (22-269); CREATININE 1.1 mg/dL (0.6-1.2); GFR - MDRD 72 (>89); GLUCOSE 92 mg/dL (70-100); LIPASE 29 U/L (22-51); MAGNESIUM 2.3 mg/dL (1.7-2.8); POTASSIUM 3.8 mmol/L (3.5-5.0); SODIUM 139 mmol/L (135-145); TOTAL PROTEIN 7.5 g/dL (6.7-8.2)
[2023-03-29 23:38] LABS: ETOH - ETHANOL < 10.0 mg/dL
[2023-03-30 00:13] LABS: THYROID STIMULATING HORMONE 2.25 uIU/mL (0.34-5.60)
[2023-03-30 00:47] LABS: ACETAMINOPHEN 0.3 ug/mL
[2023-03-30 01:10] LABS: SALICYLATE < 1.5 mg/dL
[2023-03-30 02:08] LABS: MUDS CUTOFF CONCENTRATIONS CUTOFF CONC BELOW:
[2023-03-30 02:10] LABS: BILIRUBIN,URINE NEGATIVE (NEGATIVE); GLUCOSE, URINE (UA) NEGATIVE (NEGATIVE); KETONES,URINE (UA) NEGATIVE (NEGATIVE); LEUKOCYTE ESTERASE, URINE NEGATIVE (NEGATIVE); NITRITE,URINE NEGATIVE (NEGATIVE); OCCULT BLOOD,URINE NEGATIVE (NEGATIVE); PROTEIN,URINE TRACE mg/dL (NEGATIVE); UROBILINOGEN,URINE 0.2 (NORMAL) E.U./dL (NORMAL)
[2023-03-30 02:13] LABS: CLARITY,URINE CLEAR (CLEAR)
[2023-03-30 02:22] LABS: AMPHETAMINE SCREEN,URINE POSITIVE (NEGATIVE); BARBITURATE SCREEN,UR NEGATIVE (NEGATIVE); BENZODIAZEPINES SCREEN, URINE NEGATIVE (NEGATIVE); COCAINE SCREEN URINE NEGATIVE (NEGATIVE); METHADONE SCREEN, URINE NEGATIVE (NEGATIVE); METHAMPHETAMINES SCREEN, URINE POSITIVE (NEGATIVE); OPIATE SCREEN, URINE NEGATIVE (NEGATIVE); OXYCODONE SCREEN, URINE NEGATIVE (NEGATIVE); PROPOXYPHENE SCREEN, URINE NEGATIVE (NEGATIVE); THC CANNABINOID SCREEN, URINE POSITIVE (NEGATIVE); TRICYCLIC ANTIDEPRESSANT,URINE NEGATIVE (NEGATIVE)
[2023-03-30 03:17] VITALS: BP 127/83; O2SAT 100
== END 2023-03-30 03:12 | disposition home or self-care (01) ==
LOC: EDUNIT# → ED 22:05
DX: F19.10 Other psychoactive substance abuse, uncomplicated (principal); F17.200 Nicotine dependence, unspecified, uncomplicated
CPT/HCPCS: 36415; 80053; 80306; 80307; 81003; 82550; 83690; 83735; 84443; 85025; 99282; 99283; A9270; G0480; 80320; 80329; 81001; 87086

== ENCOUNTER 2023-04-05 19:12 | Outpatient (CLI) | payer MEDICARE | END 2023-04-05 23:59 | disposition critical access hospital (66) | LOC: EMS 19:12 | DX: R56.9 Unspecified convulsions (principal) | CPT/HCPCS: A0425; A0429 ==

== ENCOUNTER 2023-04-05 19:33 | Emergency (ER) | payer MEDICARE ==
[2023-04-05] MEDS ORDERED: SODIUM CHLORIDE 0.9% 1,000 ML IV STA (19:47)
--- NOTE | 2023-04-05 19:50 | ED Physician Documentation ---
History of Present Illness - Stated complaint Stated Complaint: SZ, HEAD AND NOSE ABRASION - Chief complaint Chief Complaint: Neuro PD PAST MEDICAL HISTORY - Past Medical History Cardiovascular: None Respiratory: None Neuro: None, Seizure disorder Endocrine/Autoimmune: None GI: None : None HEENT: None Psych: None Musculoskeletal: None Derm: None - Past Surgical History Past Surgical History: No - Present Medications Home Medications: Ambulatory Orders Medication Instructions Recorded Confirmed lamoTRIgine [LaMICtal] 300 mg PO BID 11/22/13 03/30/23 risperiDONE [Risperdal] 3 mg PO DAILY PM 11/17/16 03/30/23 Divalproex Sodium [Depakote] 500 mg PO QPM 03/06/20 03/30/23 - Allergies Allergies/Adverse Reactions: Allergies Allergy/AdvReac Type Severity Reaction Status Date / Time No Known Drug Allergies Allergy Verified 04/05/23 19:45 - Social History Does the pt smoke?: Yes Smoking Status: Current every day smoker Does the pt drink ETOH?: No Does the pt have substance abuse?: Yes - Immunizations Immunizations are current?: Yes - POLST Patient has POLST: No Results - Vitals Vitals: Vital Signs - 24 hr 04/05/23 19:41 Temperature 36.9 C Heart Rate 112 H Respiratory 18 Rate Blood Pressure 126/69 O2 Saturation 96 Oxygen O2 Source Room air Departure - Departure
--- NOTE | 2023-04-05 19:53 | ED Physician Documentation ---
History of Present Illness - Stated complaint Stated Complaint: SZ, HEAD AND NOSE ABRASION - Chief complaint Chief Complaint: Neuro - Additonal information Additional information: 47-year-old male with known seizure disorder presents to the emergency department after a witnessed seizure. Per EMS it was described as tonic-clonic. Lasted about 1 minute. Patient was postictal for EMS on arrival. His blood glucose was normal. He had a right forehead abrasion and swelling to the nose. Arrival to the emergency department patient is alert and oriented x4. No focal neurodeficits though he is still a little lethargic and slow to respond to questions. He states his last seizure was several months ago. He endorses taking Depakote 1750 mg nightly. Patient does endorse daily cannabis use. Previous imaging for the patient reveals that he has chronic appearing nasal bone fractures. Today on presentation he does appear to have some swelling of the nose but no epistaxis or septal hematoma or significant deformity noted. Review of Systems Constitutional: denies: Fever Ears: denies: Loss of hearing, Ear pain Nose: reports: Reviewed and negative Throat: reports: Reviewed and negative Cardiac: reports: Reviewed and negative Respiratory: reports: Reviewed and negative PD PAST MEDICAL HISTORY - Past Medical History Cardiovascular: None Respiratory: None Neuro: None, Seizure disorder Endocrine/Autoimmune: None GI: None : None HEENT: None Psych: None Musculoskeletal: None Derm: None - Past Surgical History Past Surgical History: No - Present Medications Home Medications: Ambulatory Orders Medication Instructions Recorded Confirmed lamoTRIgine [LaMICtal] 300 mg PO BID 11/22/13 03/30/23 risperiDONE [Risperdal] 3 mg PO DAILY PM 11/17/16 03/30/23 Divalproex Sodium [Depakote] 500 mg PO QPM 03/06/20 03/30/23 - Allergies Allergies/Adverse Reactions: Allergies Allergy/AdvReac Type Severity Reaction Status Date / Time No Known Drug Allergies Allergy Verified 04/05/23 19:45 - Social History Does the pt smoke?: Yes Smoking Status: Current every day smoker Does the pt drink ETOH?: No Does the pt have substance abuse?: Yes - Immunizations Immunizations are current?: Yes - POLST Patient has POLST: No PD ED PE NORMAL - General General: Alert and oriented X 3, No acute distress, Well developed/nourished - HEENT HEENT: EOMI, Ears normal. No: Atraumatic (Superficial abrasion of the right forehead. Negative for hemotympanums, raccoon eyes or cash sign. Mild swelling noted to the bridge of the nose without obvious deformity. No epistaxis or septal hematoma) - Neck Neck: Supple, no meningeal sign, No adenopathy - Cardiac Cardiac: RRR, No murmur - Respiratory Respiratory: No respiratory distress - Abdomen Abdomen: Normal bowel sounds, Soft - Back Back: No CVA TTP - Derm Derm: Normal color, Warm and dry, No rash - Extremities Extremities: No deformity - Neuro Neuro: Alert and oriented X 3, toolroom helper 2-12 intact Eye Opening: Spontaneous Motor: Obeys Commands Verbal: Oriented GCS Score: 15 Results - Vitals Vitals: Vital Signs - 24 hr 04/05/23 04/05/23 19:41 20:10 Temperature 36.9 C Heart Rate 112 H 105 H Respiratory 18 16 Rate Blood Pressure 126/69 132/86 H O2 Saturation 96 95 Oxygen O2 Source Room air - Labs Labs: Laboratory Tests 04/05/23 04/05/23 19:51 19:51 WBC 8.2 RBC 4.34 L Hgb 13.9 L Hct 43.0 MCV 99.1 H MCH 32.0 H MCHC 32.3 RDW 11.9 L Plt Count 249 MPV 9.3 Neut # (Auto) 4.8 Lymph # (Auto) 2.5 [place] # (Auto) 0.7 Eos # (Auto) 0.1 Baso # (Auto) 0.1 Absolute Nucleated RBC 0.00 Nucleated RBC % 0.0 Sodium 139 Potassium 3.9 Chloride 100 L Carbon Dioxide 26 Anion Gap 13.0 BUN 14 Creatinine 0.9 Estimated GFR (MDRD) 91 Glucose 97 Calcium 10.0 Total Bilirubin 0.3 AST 19 ALT 23 Alkaline Phosphatase 61 Total Protein 6.7 Albumin 4.5 Globulin 2.2 Albumin/Globulin Ratio 2.0 Lipase 16 Valproic Acid 65.8 PD Medical Decision Making - ED course Complexity details: reviewed results, re-evaluated patient, d/w patient ED course: 47-year-old male with known seizure disorder presents emergency department via EMS after witnessed seizure that lasted approximately 1 minute. He did strike his head on the ground and has a superficial abrasion on the forehead as well as some swelling to the nose but no epistaxis or septal hematoma. On presentation to the emergency department the patient is alert and oriented x3 though a little slow to respond and may still be mildly postictal. His vital signs were without acute worrisome derangement or fevers. He reported compliance with the valproic acid and Lamictal. Should be noted that the patient has multiple ED visits for mental health exams as well as seizures in the past and has previously documented noncompliance with meds. Patient did endorse cannabis use today and daily. Initially because he was still slightly lethargic I ordered an IV and IV fluids however shortly after ordering this the patient became more awake and declined the IV fluids. We did obtain CBC and electrolytes as well as a Depakote level which was therapeutic There was some swelling to the bridge of his nose. Did obtain nasal bone x-rays and there is some acute on chronic nasal fractures. Patient was advised to follow closely with ENT. He has no evidence of an orbital fracture extraocular movements are preserved. On reevaluation pt is alert, no focal deficits and is requesting dc home. The usual emergent return precautions discussed Departure - Departure Disposition: 01 Home, Self Care Clinical Impression: Seizure Nasal bone fractures Qualifiers: Encounter type: initial encounter Fracture type: closed Qualified Code(s): S02.2XXA - Fracture of nasal bones, initial encounter for closed fracture Condition: Stable Record reviewed to determine appropriate education?: Yes Comments: You are seen today in the emergency department because you had a seizure and fell forward striking her head on the ground. You do have an abrasion of your forehead and some swelling of your nose. The x-ray does show a new nasal bone fracture however this is on top of chronic and old nasal fractures. I do recommend that you follow closely with an ear nose throat doctor for longer-term evaluation and management of your nasal fractures. Please take the Depakote and Lamictal as prescribed by your doctors. Return to the ER for any new seizure activity, sudden severe headache uncontrolled vomiting or slurred speech/facial droop. Forms: PCP List
[2023-04-05 19:56] LABS: BASOPHILS # (AUTO) 0.1 10^3/uL (0.0-0.1); BASOPHILS % (AUTO) 0.7 %; EOSINOPHILS # (AUTO) 0.1 10^3/uL (0.0-0.7); EOSINOPHILS % (AUTO) 1.5 %; HGB - HEMOGLOBIN 13.9 g/dL (14.0-18.0); LYMPHOCYTES # (AUTO) 2.5 10^3/uL (1.5-3.5); MEAN CORPUSCULAR HGB CONC 32.3 g/dL (32.0-36.0); MEAN CORPUSCULAR VOLUME 99.1 fL (80.0-94.0); MEAN PLATELET VOLUME 9.3 fL (7.4-11.4); MONOCYTES # (AUTO) 0.7 10^3/uL (0.0-1.0); MONOCYTES % (AUTO) 8.9 %; NEUTROPHILS # (AUTO) 4.8 10^3/uL (1.5-6.6); NEUTROPHILS % (AUTO) 58.5 %; PLT - PLATELET COUNT 249 10^3/uL (130-450); RED BLOOD COUNT 4.34 10^6/uL (4.70-6.10); RED CELL DISTRIBUTION WIDTH 11.9 % (12.0-15.0); WHITE BLOOD COUNT 8.2 x10^3/uL (4.8-10.8)
[2023-04-05 20:19] VITALS: BP 132/86; O2SAT 95
[2023-04-05 20:20] LABS: ALBUMIN 4.5 g/dL (3.2-5.5); ALKALINE PHOSPHATASE 61 IU/L (42-121); ALT ALANINE AMINOTRANSFERASE 23 IU/L (10-60); AST ASPARTATE AMINOTRANSFERASE 19 IU/L (10-42); BILIRUBIN,TOTAL 0.3 mg/dL (0.2-1.0); BUN - BLOOD UREA NITROGEN 14 mg/dL (6-20); CARBON DIOXIDE - CO2 26 mmol/L (21-32); CHLORIDE 100 mmol/L (101-111); CREATININE 0.9 mg/dL (0.6-1.3); GFR - MDRD 91 (>89); GLUCOSE 97 mg/dL (74-104); LIPASE 16 U/L (11-82); POTASSIUM 3.9 mmol/L (3.5-4.5); SODIUM 139 mmol/L (135-145); TOTAL PROTEIN 6.7 g/dL (6.4-8.9); VALPROIC ACID (DEPAKOTE) 65.8 ug/mL
--- NOTE | 2023-04-05 20:37 | XRAY Report ---
PROCEDURE: Nasal Bones INDICATIONS: seizure; nasal trauma TECHNIQUE: 2 views of the nasal bones acquired. COMPARISON: None FINDINGS: Bones: Probable nondisplaced fracture of the nasal bone. Slight leftward deviation of the vomer. Nor mal nasociliary nerve grooves are noted. Soft tissues: No suspicious soft tissue calcifications. IMPRESSION: Probable nondisplaced fracture of the nasal bone. Reviewed by: Madi Patel on 04/05/2023 8:35 PM PDT Approved by: Madi Patel on 04/05/2023 8:35 PM PDT Station ID: [id number]
== END 2023-04-05 21:03 | disposition home or self-care (01) ==
LOC: EDUNIT# → ED 19:33
DX: R56.9 Unspecified convulsions (principal); S02.2XXA Fracture of nasal bones, initial encounter for closed fracture; X58.XXXA Exposure to other specified factors, initial encounter; F17.200 Nicotine dependence, unspecified, uncomplicated
CPT/HCPCS: 36415; 80053; 80164; 83690; 85025; 99283; 99284

== ENCOUNTER 2023-05-03 13:47 | Outpatient (CLI) | payer MEDICARE | END 2023-05-03 23:59 | disposition critical access hospital (66) | LOC: EMS 13:47 | DX: R56.9 Unspecified convulsions (principal) | CPT/HCPCS: A0425; A0429 ==

== ENCOUNTER 2023-05-24 11:37 | Outpatient (CLI) | payer MEDICARE | END 2023-05-24 11:38 | disposition left against medical advice (07) | LOC: EMS 11:37 | DX: R56.9 Unspecified convulsions (principal) ==

== ENCOUNTER 2023-07-28 13:53 | Outpatient (CLI) | payer MEDICARE, MEDICAID | END 2023-07-28 23:59 | disposition critical access hospital (66) | LOC: EMS 13:53 | DX: R56.9 Unspecified convulsions (principal) | CPT/HCPCS: A0425; A0429 ==

== ENCOUNTER 2023-07-28 14:22 | Emergency (ER) | payer MEDICARE, MEDICAID ==
--- NOTE | 2023-07-28 15:04 | ED Physician Documentation ---
PD HPI SEIZURE - Stated complaint Stated Complaint: SEIZURE - Chief complaint Chief Complaint: Neuro - History obtained from History obtained from: Patient, EMS - Additional information Additional information: 47-year-old male [facility]. Patient has history of seizure disorder and is on Lamictal, Risperdal, and Depakote for his seizures. Patient states this is a typical seizure for him. He states he is currently tired, which is typical after a breakthrough seizure but otherwise feels fine. Accu-Chek normal per EMS Review of Systems Constitutional: denies: Fever, Chills Cardiac: denies: Chest pain / pressure, Palpitations, Calf pain Respiratory: denies: Dyspnea, Cough, Wheezing GI: denies: Abdominal Pain, Nausea, Vomiting, Constipation, Diarrhea Neurologic: reports: Seizure. denies: Generalized weakness, Focal weakness, Syncope, Headache, Head injury PD PAST MEDICAL HISTORY - Past Medical History Past Medical History: Yes Cardiovascular: None Respiratory: None Neuro: None, Seizure disorder Endocrine/Autoimmune: None GI: None : None HEENT: None Psych: None Musculoskeletal: None Derm: None - Past Surgical History Past Surgical History: No - Present Medications Home Medications: Ambulatory Orders Medication Instructions Recorded Confirmed lamoTRIgine [LaMICtal] 300 mg PO BID 11/22/13 07/28/23 risperiDONE [Risperdal] 3 mg PO DAILY PM 11/17/16 07/28/23 Divalproex Sodium [Depakote] 500 mg PO QPM 03/06/20 07/28/23 - Allergies Allergies/Adverse Reactions: Allergies Allergy/AdvReac Type Severity Reaction Status Date / Time No Known Drug Allergies Allergy Verified 04/05/23 19:45 - Social History Does the pt smoke?: Yes Smoking Status: Current every day smoker Does the pt drink ETOH?: No Does the pt have substance abuse?: Yes - Immunizations Immunizations are current?: Yes - POLST Patient has POLST: No PD ED PE NORMAL - Vitals Vital signs reviewed: Yes - General General: Alert and oriented X 3, No acute distress, Well developed/nourished - HEENT HEENT: Atraumatic, PERRL, EOMI - Neck Neck: Supple, no meningeal sign - Cardiac Cardiac: RRR, Strong equal pulses - Respiratory Respiratory: No respiratory distress, Clear bilaterally - Abdomen Abdomen: Soft, Non tender, Non distended - Derm Derm: Normal color, Warm and dry, No rash - Extremities Extremities: No deformity, No tenderness to palpate, Normal ROM s pain, No edema - Neuro Neuro: Alert and oriented X 3, review rn 2-12 intact, No motor deficit, Normal speech Results - Vitals Vitals: Vital Signs - 24 hr 07/28/23 07/28/23 07/28/23 14:26 15:02 15:58 Temperature 36.5 C 36.2 C L Heart Rate 96 93 95 Respiratory 18 18 13 Rate Blood Pressure 118/72 113/68 91/81 H O2 Saturation 99 97 100 Oxygen O2 Source Room air PD Medical Decision Making - ED course Complexity details: reviewed results, re-evaluated patient, considered differential, d/w patient ED course: Breakthrough seizure, typical for patient. Patient reports compliance with medication and states he feels tired but otherwise back to his baseline. He does not want any interventions at this time. He declines any refills of his medications. EKG sinus rhythm without arrhythmia or prolonged QT. Patient monitored for an hour without further seizure activity. Subsequently discharged in stable condition. Departure - Departure Disposition: 01 Home, Self Care Clinical Impression: Seizure Condition: Stable Instructions: ED Seizure Recurrent Comments: KEEP TAKING YOUR MEDICATIONS LIKE USUAL Forms: PCP List Discharge Date/Time: 07/28/23 15:58
[2023-07-28 16:09] VITALS: BP 91/81; O2SAT 100
== END 2023-07-28 15:58 | disposition home or self-care (01) ==
LOC: EDUNIT# → ED 14:22
DX: R56.9 Unspecified convulsions (principal); F17.200 Nicotine dependence, unspecified, uncomplicated; Z59.01 Sheltered homelessness
CPT/HCPCS: 99283

== ENCOUNTER 2023-07-28 16:51 | Outpatient (CLI) | payer MEDICARE, MEDICAID | END 2023-07-28 23:59 | disposition EMS.NT | LOC: EMS 16:51 | DX: R56.9 Unspecified convulsions (principal) ==

== ENCOUNTER 2023-10-30 07:24 | Outpatient (CLI) | payer MEDICARE, MEDICAID | END 2023-10-30 23:59 | disposition EMS.NT | LOC: EMS 07:24 | DX: R42 Dizziness and giddiness (principal); R11.0 Nausea ==

== ENCOUNTER 2023-11-10 09:49 | Outpatient (CLI) | payer MEDICARE, MEDICAID | END 2023-11-10 23:59 | disposition left against medical advice (07) | LOC: EMS 09:49 | DX: R56.9 Unspecified convulsions (principal) ==

== ENCOUNTER 2023-11-18 12:07 | Outpatient (CLI) | payer MEDICARE, MEDICAID | END 2023-11-18 23:59 | disposition critical access hospital (66) | LOC: EMS 12:07 | DX: R46.4 Slowness and poor responsiveness (principal); R40.0 Somnolence; I10 Essential (primary) hypertension | CPT/HCPCS: A0425; A0429 ==

== ENCOUNTER 2023-11-18 12:24 | Emergency (ER) | payer MEDICARE, MEDICAID ==
[2023-11-18 12:40] VITALS: BP 134/114; O2SAT 96
[2023-11-18 13:08] LABS: BASOPHILS % (AUTO) 0.4 %; EOSINOPHILS # (AUTO) 0.2 10^3/uL (0.0-0.7); EOSINOPHILS % (AUTO) 2.2 %; HCT - HEMATOCRIT 50.7 % (42.0-52.0); HGB - HEMOGLOBIN 15.6 g/dL (14.0-18.0); LYMPHOCYTES # (AUTO) 2.2 10^3/uL (1.5-3.5); LYMPHOCYTES % (AUTO) 23.1 %; MEAN CORPUSCULAR HEMOGLOBIN 31.3 pg (27.0-31.0); MEAN CORPUSCULAR HGB CONC 30.8 g/dL (32.0-36.0); MEAN CORPUSCULAR VOLUME 101.8 fL (80.0-94.0); MEAN PLATELET VOLUME 9.3 fL (7.4-11.4); MONOCYTES # (AUTO) 0.8 10^3/uL (0.0-1.0); MONOCYTES % (AUTO) 8.1 %; NEUTROPHILS # (AUTO) 6.3 10^3/uL (1.5-6.6); PLT - PLATELET COUNT 242 10^3/uL (130-450); RED BLOOD COUNT 4.98 10^6/uL (4.70-6.10); RED CELL DISTRIBUTION WIDTH 12.3 % (12.0-15.0); WHITE BLOOD COUNT 9.5 x10^3/uL (4.8-10.8)
[2023-11-18 13:17] LABS: MAGNESIUM 2.2 mg/dL (1.7-2.3)
--- NOTE | 2023-11-18 13:21 | ED Physician Documentation ---
History of Present Illness - Stated complaint Stated Complaint: ALOC - Chief complaint Chief Complaint: Neuro - History obtained from History obtained from: Patient, EMS - History of Present Illness Timing: Today Pain level max: 0 Pain level now: 0 - Additonal information Additional information: Patient is a 48-year-old male who presents to the emergency department with altered mental status today. He states he is still sleepy and wants to be left alone to sleep. Has a history of a seizure disorder. He states that he did not have a seizure today. He states he is just tired. No headaches. No neck pain, chest pain, back pain, abdominal pain, nausea or vomiting. Denies any drug or alcohol use. Nothing makes it better or worse. Denies any injuries. States he has been taking his antiepileptic medications as prescribed. Review of Systems Constitutional: denies: Fever, Chills Nose: denies: Rhinorrhea / runny nose, Congestion Throat: denies: Sore throat Cardiac: denies: Chest pain / pressure, Palpitations Respiratory: denies: Dyspnea, Cough GI: denies: Abdominal Pain, Nausea, Vomiting, Diarrhea : denies: Dysuria Skin: denies: Rash Musculoskeletal: denies: Neck pain, Back pain Neurologic: denies: Seizure, Headache, Head injury PD PAST MEDICAL HISTORY - Past Medical History Cardiovascular: None Respiratory: None Neuro: None, Seizure disorder Endocrine/Autoimmune: None GI: None : None HEENT: None Psych: None Musculoskeletal: None Derm: None - Past Surgical History Past Surgical History: No - Present Medications Home Medications: Ambulatory Orders Medication Instructions Recorded Confirmed lamoTRIgine [LaMICtal] 300 mg PO BID 11/22/13 07/28/23 risperiDONE [Risperdal] 3 mg PO DAILY PM 11/17/16 07/28/23 Divalproex Sodium [Depakote] 500 mg PO QPM 03/06/20 07/28/23 - Allergies Allergies/Adverse Reactions: Allergies Allergy/AdvReac Type Severity Reaction Status Date / Time No Known Drug Allergies Allergy Verified 11/18/23 12:39 - Social History Does the pt smoke?: Yes Smoking Status: Current every day smoker Does the pt drink ETOH?: No Does the pt have substance abuse?: Yes - Immunizations Immunizations are current?: Yes - POLST Patient has POLST: No PD ED PE NORMAL - Vitals Vital signs reviewed: Yes - General General: No acute distress, Other (Drowsy but arousable) - HEENT HEENT: Other (Pinpoint pupils bilaterally, atraumatic exam. Normal intraoral exam) - Neck Neck: Supple, no meningeal sign, No bony TTP - Cardiac Cardiac: RRR, No murmur, Strong equal pulses - Respiratory Respiratory: No respiratory distress, Clear bilaterally - Abdomen Abdomen: Soft, Non tender, Non distended - Back Back: No spinal TTP - Derm Derm: Warm and dry - Extremities Extremities: No deformity, Normal ROM s pain - Neuro Neuro: embedded developer 2-12 intact, No motor deficit, No sensory deficit, Normal speech, Other (Drowsy but arousable) Eye Opening: To Voice Motor: Obeys Commands Verbal: Oriented GCS Score: 14 - Psych Psych: Normal mood, Normal affect Results - Vitals Vitals: Vital Signs - 24 hr 11/18/23 12:35 Temperature 36.1 C L Heart Rate 75 Respiratory 17 Rate Blood Pressure 134/114 H O2 Saturation 96 Oxygen O2 Source Room air - Labs Labs: Laboratory Tests 11/18/23 11/18/23 11/18/23 13:01 13:01 15:05 WBC 9.5 RBC 4.98 Hgb 15.6 Hct 50.7 MCV 101.8 H MCH 31.3 H MCHC 30.8 L RDW 12.3 Plt Count 242 MPV 9.3 Neut # (Auto) 6.3 Lymph # (Auto) 2.2 [place] # (Auto) 0.8 Eos # (Auto) 0.2 Baso # (Auto) 0.0 Absolute Nucleated RBC 0.00 Nucleated RBC % 0.0 Sodium 139 Potassium 5.0 H Chloride 105 Carbon Dioxide 28 Anion Gap 6.0 BUN 17 Creatinine 1.0 Estimated GFR (MDRD) 80 L Glucose 91 Calcium 10.1 Magnesium 2.2 Total Bilirubin 0.3 AST 19 ALT 15 Alkaline Phosphatase 61 Total Creatine Kinase 79 Total Protein 7.4 Albumin 4.7 Globulin 2.7 Albumin/Globulin Ratio 1.7 Lipase 40 TSH 2.89 Urine Color YELLOW Urine Clarity CLEAR Urine pH 6.0 Ur Specific [place] >=1.030 H Urine Protein NEGATIVE Urine Glucose (UA) NEGATIVE Urine Ketones NEGATIVE Urine Occult Blood NEGATIVE Urine Nitrite NEGATIVE Urine Bilirubin NEGATIVE Urine Urobilinogen 0.2 (NORMAL) Ur Leukocyte Esterase NEGATIVE Ur Microscopic Review NOT INDICATED Urine Culture Comments NOT INDICATED Salicylates < 1.5 Urine Opiates Screen NEGATIVE Ur Buprenorphine Scrn NEGATIVE Ur Oxycodone Screen NEGATIVE Urine Methadone Screen NEGATIVE Acetaminophen 0.6 Ur Barbiturates Screen NEGATIVE Ur Tricyclics Screen NEGATIVE Ur Phencyclidine Scrn NEGATIVE Ur Amphetamine Screen POSITIVE H U Methamphetamines Scrn POSITIVE H U Benzodiazepines Scrn NEGATIVE Urine Cocaine Screen NEGATIVE U Cannabinoids Screen POSITIVE H Ur Drug Screen Comment CUTOFF CONC BELOW: Ethyl Alcohol < 10.0 - Rads (name of study) head ct Relevant Findings:: Final report received, See rad report PD Medical Decision Making - ED course Complexity details: reviewed results, re-evaluated patient, considered differential, d/w patient ED course: No acute findings on head CT. Laboratory studies do not show any acute abnormalities. Does not appear to have had a seizure. He had a straight catheterization performed in the emergency department this is positive for methamphetamines. Likely that he is coming down off of the methamphetamine high. He is awake, alert, tolerating p.o. without difficulty and ambulating under his own power. No emergency medical condition at this time. Patient counseled regarding signs and symptoms for which I believe and urgent re- evaluation would be necessary. Patient with good understanding of and agreement to plan and is comfortable going home at this time This document was made in part using voice recognition software. While efforts are made to proofread this document, sound alike and grammatical errors may occ ur. Departure - Departure Disposition: 01 Home, Self Care Clinical Impression: Methamphetamine abuse, Drowsiness Condition: Good Instructions: ED Drug Abuse General Follow-Up: your,doctor in 1 week [Other] Comments: Your laboratory testing and head CT do not show any acute abnormalities today. Your drowsiness is likely secondary to coming off of methamphetamines. Please follow-up with your doctor for further care. Return if you worsen. Forms: PCP List Discharge Date/Time: 11/18/23 16:10
[2023-11-18 13:23] LABS: ACETAMINOPHEN 0.6 ug/mL; ALBUMIN 4.7 g/dL (3.2-5.5); ALBUMIN/GLOBULIN RATIO 1.7 (1.0-2.2); ALKALINE PHOSPHATASE 61 IU/L (42-121); ALT ALANINE AMINOTRANSFERASE 15 IU/L (10-60); AST ASPARTATE AMINOTRANSFERASE 19 IU/L (10-42); BILIRUBIN,TOTAL 0.3 mg/dL (0.2-1.0); BUN - BLOOD UREA NITROGEN 17 mg/dL (6-20); CALCIUM 10.1 mg/dL (8.5-10.3); CARBON DIOXIDE - CO2 28 mmol/L (21-32); CHLORIDE 105 mmol/L (101-111); CK- CREATINE KINASE 79 IU/L (30-223); ETOH - ETHANOL < 10.0 mg/dL; GFR - MDRD 80 (>89); GLUCOSE 91 mg/dL (74-104); LIPASE 40 U/L (11-82); SODIUM 139 mmol/L (135-145); TOTAL PROTEIN 7.4 g/dL (6.4-8.9)
[2023-11-18 13:27] LABS: SALICYLATE < 1.5 mg/dL
[2023-11-18 13:38] LABS: THYROID STIMULATING HORMONE 2.89 uIU/mL (0.34-5.60)
[2023-11-18] MEDS: SODIUM CHLORIDE 0.9% 1,000 ML IV STA ×2 (14:04→15:42)
[2023-11-18 15:20] LABS: BILIRUBIN,URINE NEGATIVE (NEGATIVE); GLUCOSE, URINE (UA) NEGATIVE (NEGATIVE); KETONES,URINE (UA) NEGATIVE (NEGATIVE); LEUKOCYTE ESTERASE, URINE NEGATIVE (NEGATIVE); NITRITE,URINE NEGATIVE (NEGATIVE); OCCULT BLOOD,URINE NEGATIVE (NEGATIVE); PROTEIN,URINE NEGATIVE (NEGATIVE); UROBILINOGEN,URINE 0.2 (NORMAL) E.U./dL (NORMAL)
--- NOTE | 2023-11-18 15:24 | CT Report ---
PROCEDURE: Head WO INDICATIONS: altered TECHNIQUE: Noncontrast 4.5 mm thick angled axial sections acquired from the foramen magnum to the vertex. For r adiation dose reduction, the following was used: automated exposure control, adjustment of mA and/or kV according to patient size. COMPARISON: CT head 06/08/2022 FINDINGS: Image quality: Excellent. CSF spaces: Basal cisterns are patent. No extra-axial fluid collections. Ventricles are normal in size and shape. Brain: No midline shift. No intracranial masses or hemorrhage. Calix-white matter interface is norm al. Skull and face: Mild deformity of the nasal bones appears to be chronic. Calvarium and visualized fac ial bones are intact, without suspicious lesions. Sinuses: Visualized sinuses and mastoids are clear. IMPRESSION: No acute intracranial pathology. Reviewed by: Fuad Kirby MD on 11/18/2023 3:22 PM PDT Approved by: Fuad Kirby MD on 11/18/2023 3:22 PM PDT Station ID: [id number]
[2023-11-18 15:30] LABS: CLARITY,URINE CLEAR (CLEAR)
[2023-11-18 15:37] LABS: COCAINE SCREEN URINE NEGATIVE (NEGATIVE); METHAMPHETAMINES SCREEN, URINE POSITIVE (NEGATIVE); OPIATE SCREEN, URINE NEGATIVE (NEGATIVE); THC CANNABINOID SCREEN, URINE POSITIVE (NEGATIVE)
[2023-11-18 15:38] LABS: AMPHETAMINE SCREEN,URINE POSITIVE (NEGATIVE); BARBITURATE SCREEN,UR NEGATIVE (NEGATIVE); BENZODIAZEPINES SCREEN, URINE NEGATIVE (NEGATIVE); BUPRENORPHINE SCREEN, URINE NEGATIVE (NEGATIVE); METHADONE SCREEN, URINE NEGATIVE (NEGATIVE); OXYCODONE SCREEN, URINE NEGATIVE (NEGATIVE); TRICYCLIC ANTIDEPRESSANT,URINE NEGATIVE (NEGATIVE)
== END 2023-11-18 16:10 | disposition home or self-care (01) ==
LOC: EDUNIT# → EDBD → ED 12:24
DX: F15.10 Other stimulant abuse, uncomplicated (principal); R40.0 Somnolence; G40.909 Epilepsy, unspecified, not intractable, without status epilepticus; Z79.899 Other long term (current) drug therapy; F17.200 Nicotine dependence, unspecified, uncomplicated
CPT/HCPCS: 36415; 51701; 70450; 80053; 80143; 80306; 81003; 82550; 83690; 83735; 84443; 85025; 96360; 99282; 99284; G0480; 80179; 81001; 82077; 87086

== ENCOUNTER 2023-11-23 20:23 | Outpatient (CLI) | payer MEDICARE, MEDICAID | END 2023-11-23 23:59 | disposition critical access hospital (66) | LOC: EMS 20:23 | DX: R42 Dizziness and giddiness (principal); R53.83 Other fatigue | CPT/HCPCS: A0425; A0429 ==

== ENCOUNTER 2023-11-23 20:39 | Emergency (ER) | payer MEDICARE, MEDICAID ==
--- NOTE | 2023-11-23 20:59 | ED Physician Documentation ---
History of Present Illness - Stated complaint Stated Complaint: DIZZINESS - Chief complaint Chief Complaint: General - Additonal information Additional information: 48-year-old male presents emergency department via EMS patient reports that he is cold and feeling unwell. Patient has known history of methamphetamine abuse patient reports that he recently took a couple hits of something but is unsure what he took and also reports some cannabis use today. No nausea vomiting diarrhea chest pain or shortness of breath. PD PAST MEDICAL HISTORY - Past Medical History Past Medical History: No Cardiovascular: None Respiratory: None Neuro: None, Seizure disorder Endocrine/Autoimmune: None GI: None : None HEENT: None Psych: None Musculoskeletal: None Derm: None - Past Surgical History Past Surgical History: No - Present Medications Home Medications: Ambulatory Orders Medication Instructions Recorded Confirmed lamoTRIgine [LaMICtal] 300 mg PO BID 11/22/13 07/28/23 risperiDONE [Risperdal] 3 mg PO DAILY PM 11/17/16 07/28/23 Divalproex Sodium [Depakote] 500 mg PO QPM 03/06/20 07/28/23 - Allergies Allergies/Adverse Reactions: Allergies Allergy/AdvReac Type Severity Reaction Status Date / Time No Known Drug Allergies Allergy Verified 11/23/23 20:42 - Social History Does the pt smoke?: Yes Smoking Status: Current every day smoker Does the pt drink ETOH?: No Does the pt have substance abuse?: Yes - Immunizations Immunizations are current?: Yes - POLST Patient has POLST: No PD ED PE NORMAL - Vitals Vital signs reviewed: Yes - General General: No acute distress, Well developed/nourished, Other (appears to be under the influence of drugs) - HEENT HEENT: Atraumatic, PERRL - Cardiac Cardiac: RRR - Respiratory Respiratory: No respiratory distress, Clear bilaterally - Neuro Neuro: Alert and oriented X 3, public area supervisor 2-12 intact, No motor deficit, No sensory deficit, Normal speech PD ED PE EXPANDED - Psych Psych: Intoxicated / AOB, Depressed, Withdrawn, Poor eye contact, Agitated. No: Auditory hallucinations, Visual hallucinations, Tactile hallucinations, Delusions Results - Vitals Vitals: Vital Signs - 24 hr 11/23/23 11/23/23 11/23/23 20:42 20:45 22:23 Temperature 36.5 C 36.5 C 36.5 C Heart Rate 80 80 80 Respiratory 20 20 18 Rate Blood Pressure 137/94 H 137/94 H 130/88 H O2 Saturation 99 99 100 Oxygen O2 Source Room air - Labs Labs: Laboratory Tests 11/23/23 11/23/23 11/23/23 20:59 20:59 20:59 WBC 9.2 RBC 4.56 L Hgb 14.4 Hct 46.2 MCV 101.3 H MCH 31.6 H MCHC 31.2 L RDW 12.3 Plt Count 226 MPV 9.4 Neut # (Auto) 4.8 Lymph # (Auto) 3.3 [facility] # (Auto) 0.9 Eos # (Auto) 0.2 Baso # (Auto) 0.1 Absolute Nucleated RBC 0.00 Nucleated RBC % 0.0 Sodium 136 Potassium 4.4 Chloride 100 L Carbon Dioxide 27 Anion Gap 9.0 BUN 24 H Creatinine 1.0 Estimated GFR (MDRD) 80 L Glucose 84 Calcium 9.9 Magnesium 2.2 Total Bilirubin 0.3 AST 17 ALT 16 Alkaline Phosphatase 62 Total Protein 6.7 Albumin 4.5 Globulin 2.2 Albumin/Globulin Ratio 2.0 Lipase 89 H Urine Color Urine Clarity Urine pH Ur Specific [place] Urine Protein Urine Glucose (UA) Urine Ketones Urine Occult Blood Urine Nitrite Urine Bilirubin Urine Urobilinogen Ur Leukocyte Esterase Ur Microscopic Review Urine Culture Comments Nasal Adenovirus (PCR) NOT DETECTED Nasal B. parapertussis DNA (PCR) NOT DETECTED Nasal Coronavir 229E PCR NOT DETECTED Nasal Coronavir HKU1 PCR NOT DETECTED Nasal Coronavir NL63 PCR NOT DETECTED Nasal Coronavir OC43 PCR NOT DETECTED Nasal Enterovir/Rhinovir PCR NOT DETECTED Nasal Influenza B PCR NOT DETECTED Nasal Influenza A PCR NOT DETECTED Nasal Parainfluen 1 PCR NOT DETECTED Nasal Parainfluen 2 PCR NOT DETECTED Nasal Parainfluen 3 PCR NOT DETECTED Nasal Parainfluen 4 PCR NOT DETECTED Nasal RSV (PCR) NOT DETECTED Nasal B.pertussis DNA PCR NOT DETECTED Nasal C.pneumoniae (PCR) NOT DETECTED [place] Human Metapneumo PCR NOT DETECTED Nasal M.pneumoniae (PCR) NOT DETECTED Nasal SARS-CoV-2 (PCR) NOT DETECTED Urine Opiates Screen Ur Buprenorphine Scrn Ur Oxycodone Screen Urine Methadone Screen Ur Barbiturates Screen Ur Tricyclics Screen Ur Phencyclidine Scrn Ur Amphetamine Screen U Methamphetamines Scrn U Benzodiazepines Scrn Urine Cocaine Screen U Cannabinoids Screen Ur Drug Screen Comment 11/23/23 21:22 WBC RBC Hgb Hct MCV MCH MCHC RDW Plt Count MPV Neut # (Auto) Lymph # (Auto) [facility] # (Auto) Eos # (Auto) Baso # (Auto) Absolute Nucleated RBC Nucleated RBC % Sodium Potassium Chloride Carbon Dioxide Anion Gap BUN Creatinine Estimated GFR (MDRD) Glucose Calcium Magnesium Total Bilirubin AST ALT Alkaline Phosphatase Total Protein Albumin Globulin Albumin/Globulin Ratio Lipase Urine Color DARK YELLOW Urine Clarity CLEAR Urine pH 6.5 Ur Specific [place] 1.025 Urine Protein NEGATIVE Urine Glucose (UA) NEGATIVE Urine Ketones NEGATIVE Urine Occult Blood NEGATIVE Urine Nitrite NEGATIVE Urine Bilirubin NEGATIVE Urine Urobilinogen 1 (NORMAL) Ur Leukocyte Esterase NEGATIVE Ur Microscopic Review NOT INDICATED Urine Culture Comments NOT INDICATED Nasal Adenovirus (PCR) Nasal B. parapertussis DNA (PCR) Nasal Coronavir 229E PCR Nasal Coronavir HKU1 PCR Nasal Coronavir NL63 PCR Nasal Coronavir OC43 PCR Nasal Enterovir/Rhinovir PCR Nasal Influenza B PCR Nasal Influenza A PCR Nasal Parainfluen 1 PCR Nasal Parainfluen 2 PCR Nasal Parainfluen 3 PCR Nasal Parainfluen 4 PCR Nasal RSV (PCR) Nasal B.pertussis DNA PCR Nasal C.pneumoniae (PCR) [place] Human Metapneumo PCR Nasal M.pneumoniae (PCR) Nasal SARS-CoV-2 (PCR) Urine Opiates Screen NEGATIVE Ur Buprenorphine Scrn NEGATIVE Ur Oxycodone Screen NEGATIVE Urine Methadone Screen NEGATIVE Ur Barbiturates Screen NEGATIVE Ur Tricyclics Screen NEGATIVE Ur Phencyclidine Scrn NEGATIVE Ur Amphetamine Screen POSITIVE H U Methamphetamines Scrn POSITIVE H U Benzodiazepines Scrn NEGATIVE Urine Cocaine Screen NEGATIVE U Cannabinoids Screen POSITIVE H Ur Drug Screen Comment CUTOFF CONC BELOW: PD Medical Decision Making - ED course ED course: Patient says repeatedly I do not feel well when I ask him what brings him into the emergency department. Worsening he was saying that he was dizzy now he denies any dizziness. Labs are complete for further evaluation no leukocytosis no anemia MCV is elevated at 101.3, no electrolyte abnormalities BUN slightly elevated at 24 GFR 80. Urinalysis is positive for amphetamines and cannabinoids. Respiratory swab negative. At this point in time patient is alert and awake I informed the patient that I believe that the symptoms he is experiencing is coming off of methamphetamine which is similar to when he was here couple days ago. When I informed him that he is safe for discharge he becomes quite agitated and hostile and says that he is very cold and needs a place to sleep tonight I informed him that we can give him cold blankets but unfortunately he cannot sleep in the emergency department if he is not experiencing an emergency for a place to sleep. He denies any suicidal homicidal ideation he does not appear to be having any visual or auditory hallucinations. At this point time patient is safe for discharge she was given Narcan and he is strongly encouraged to quit using methamphetamines. Departure - Departure Disposition: 01 Home, Self Care Clinical Impression: Methamphetamine abuse Instructions: Abuse Meth Abuse and Addiction, ED Drug Abuse General Comments: Thank you for trusting us with your care. We have completed labs as well as a urinalysis and it appears that you are high on methamphetamines right now. You are feeling unwell as you are coming off of methamphetamines and as we discussed I would strongly encourage you to discontinue using street drugs. I sent you home with some Narcan if you are concerned about accidental overdose please spray in nose. Forms: PCP List Discharge Date/Time: 11/23/23 22:23
[2023-11-23 21:05] LABS: BASOPHILS # (AUTO) 0.1 10^3/uL (0.0-0.1); BASOPHILS % (AUTO) 0.7 %; EOSINOPHILS # (AUTO) 0.2 10^3/uL (0.0-0.7); EOSINOPHILS % (AUTO) 2.4 %; HCT - HEMATOCRIT 46.2 % (42.0-52.0); HGB - HEMOGLOBIN 14.4 g/dL (14.0-18.0); LYMPHOCYTES # (AUTO) 3.3 10^3/uL (1.5-3.5); LYMPHOCYTES % (AUTO) 35.2 %; MEAN CORPUSCULAR HEMOGLOBIN 31.6 pg (27.0-31.0); MEAN CORPUSCULAR HGB CONC 31.2 g/dL (32.0-36.0); MEAN CORPUSCULAR VOLUME 101.3 fL (80.0-94.0); MEAN PLATELET VOLUME 9.4 fL (7.4-11.4); MONOCYTES # (AUTO) 0.9 10^3/uL (0.0-1.0); MONOCYTES % (AUTO) 9.8 %; NEUTROPHILS # (AUTO) 4.8 10^3/uL (1.5-6.6); NEUTROPHILS % (AUTO) 51.7 %; PLT - PLATELET COUNT 226 10^3/uL (130-450); RED BLOOD COUNT 4.56 10^6/uL (4.70-6.10); RED CELL DISTRIBUTION WIDTH 12.3 % (12.0-15.0); WHITE BLOOD COUNT 9.2 x10^3/uL (4.8-10.8)
[2023-11-23 21:33] LABS: BILIRUBIN,URINE NEGATIVE (NEGATIVE); GLUCOSE, URINE (UA) NEGATIVE (NEGATIVE); KETONES,URINE (UA) NEGATIVE (NEGATIVE); LEUKOCYTE ESTERASE, URINE NEGATIVE (NEGATIVE); NITRITE,URINE NEGATIVE (NEGATIVE); OCCULT BLOOD,URINE NEGATIVE (NEGATIVE); PH,URINE 6.5 PH (5.0-7.5); PROTEIN,URINE NEGATIVE (NEGATIVE); UROBILINOGEN,URINE 1 (NORMAL) E.U./dL (NORMAL)
[2023-11-23 21:35] LABS: CLARITY,URINE CLEAR (CLEAR)
[2023-11-23 21:39] LABS: ALBUMIN 4.5 g/dL (3.2-5.5); BILIRUBIN,TOTAL 0.3 mg/dL (0.2-1.0); CALCIUM 9.9 mg/dL (8.5-10.3); MAGNESIUM 2.2 mg/dL (1.7-2.3); POTASSIUM 4.4 mmol/L (3.5-4.5); TOTAL PROTEIN 6.7 g/dL (6.4-8.9)
[2023-11-23 21:46] LABS: COCAINE SCREEN URINE NEGATIVE (NEGATIVE); METHAMPHETAMINES SCREEN, URINE POSITIVE (NEGATIVE); OPIATE SCREEN, URINE NEGATIVE (NEGATIVE); THC CANNABINOID SCREEN, URINE POSITIVE (NEGATIVE)
[2023-11-23 21:47] LABS: AMPHETAMINE SCREEN,URINE POSITIVE (NEGATIVE); BARBITURATE SCREEN,UR NEGATIVE (NEGATIVE); BENZODIAZEPINES SCREEN, URINE NEGATIVE (NEGATIVE); BUPRENORPHINE SCREEN, URINE NEGATIVE (NEGATIVE); METHADONE SCREEN, URINE NEGATIVE (NEGATIVE); OXYCODONE SCREEN, URINE NEGATIVE (NEGATIVE); TRICYCLIC ANTIDEPRESSANT,URINE NEGATIVE (NEGATIVE)
[2023-11-23 22:06] LABS: B. PARAPERTUSSIS- RESP PCR PAN NOT DETECTED; B. PERTUSSIS- RESP PCR PANEL NOT DETECTED; C. PNEUMONIAE- RESP PCR PANEL NOT DETECTED; CORONAVIRUS 229E-RESP PCR NOT DETECTED; CORONAVIRUS HKU1-RESP PCR NOT DETECTED; CORONAVIRUS NL63-RESP PCR NOT DETECTED; CORONAVIRUS OC43-RESP PCR NOT DETECTED; HUMAN METAPNEUMOVIRUS NOT DETECTED; INFLUENZA A- RESP PCR PANEL NOT DETECTED; INFLUENZA B - RESP PCR PANEL NOT DETECTED; M. PNEUMONIAE- RESP PCR PANEL NOT DETECTED; PARAINFLUENZA VIRUS 1 NOT DETECTED; PARAINFLUENZA VIRUS 2 NOT DETECTED; PARAINFLUENZA VIRUS 3 NOT DETECTED; PARAINFLUENZA VIRUS 4 NOT DETECTED; RHINOVIRUS/ENTEROVIRUS NOT DETECTED; RSV- RESP PCR PANEL NOT DETECTED; SARS-CoV-2 -RESP PCR PANEL NOT DETECTED
[2023-11-23] MEDS: NALOXONE HCL NASAL SPRAY KIT NAS STA (22:07)
[2023-11-23 22:30] VITALS: BP 130/88; O2SAT 100
== END 2023-11-23 22:23 | disposition home or self-care (01) ==
LOC: EDUNIT# → ED 20:39
DX: F15.10 Other stimulant abuse, uncomplicated (principal); F17.200 Nicotine dependence, unspecified, uncomplicated; Z79.899 Other long term (current) drug therapy
CPT/HCPCS: 36415; 80053; 80306; 81003; 83690; 83735; 85025; 87633; 99283; 99284; G2215; 81001; 82077; 87086

== ENCOUNTER 2023-12-04 08:37 | Outpatient (CLI) | payer MEDICARE, MEDICAID | END 2023-12-04 23:59 | disposition critical access hospital (66) | LOC: EMS 08:37 | DX: S00.81XA Abrasion of other part of head, initial encounter (principal); S60.512A Abrasion of left hand, initial encounter; S60.511A Abrasion of right hand, initial encounter; R56.9 Unspecified convulsions; W07.XXXA Fall from chair, initial encounter; Y92.89 Other specified places as the place of occurrence of the external cause | CPT/HCPCS: A0425; A0429 ==

== ENCOUNTER 2023-12-04 09:14 | Emergency (ER) | payer MEDICARE, MEDICAID ==
--- NOTE | 2023-12-04 09:34 | ED Physician Documentation ---
PD HPI SEIZURE - Stated complaint Stated Complaint: SEIZURE - Chief complaint Chief Complaint: Neuro - History obtained from History obtained from: Patient, EMS (he was not seizing on their arrival and was confused/sleepy and combative.) - History of Present Illness Timing - onset: Today Witnessed: Witnessed Number of seizures: Single Description of seizure activity: Generalized Injury during seizure: Fell, Other (fell forward and struck face, with abrasion bridge of nose and forehead, knuckles on dorsum of hands.) History of seizures: Known seizure disorder Contributing factors: No: Off meds, Out of meds, Fever Similar symptoms before: Diagnosis (seizures buttermaker, with repeat ones every few months.) Review of Systems Constitutional: denies: Fever Nose: denies: Rhinorrhea / runny nose, Congestion Throat: denies: Sore throat Respiratory: denies: Cough PD PAST MEDICAL HISTORY - Past Medical History Past Medical History: Yes Cardiovascular: None Respiratory: None Neuro: Seizure disorder Endocrine/Autoimmune: None GI: None : None HEENT: None Psych: None Musculoskeletal: None Derm: None - Past Surgical History Past Surgical History: No - Present Medications Home Medications: Ambulatory Orders Medication Instructions Recorded Confirmed lamoTRIgine [LaMICtal] 300 mg PO BID 11/22/13 07/28/23 risperiDONE [Risperdal] 3 mg PO DAILY PM 11/17/16 07/28/23 Divalproex Sodium [Depakote] 500 mg PO QPM 03/06/20 07/28/23 - Allergies Allergies/Adverse Reactions: Allergies Allergy/AdvReac Type Severity Reaction Status Date / Time No Known Drug Allergies Allergy Verified 12/04/23 09:25 - Social History Does the pt smoke?: Yes Smoking Status: Current every day smoker Does the pt drink ETOH?: No Does the pt have substance abuse?: Yes - Immunizations Immunizations are current?: Yes - POLST Patient has POLST: No PD ED PE NORMAL - Vitals Vital signs reviewed: Yes - General General: Alert and oriented X 3 (more oriented and cooperative, alert, after few minutes in ER. ), No acute distress, Well developed/nourished, Other (sleepy on first arival but awake and conversant soon after arrival. EMS reports he was combative initially on their arrival with confused and sleepy. More calm and cooperative enroute. ) - HEENT HEENT: Moist mucous membranes, Pharynx benign, Other (bridge of nose with abrasion, no FB. forehead mild abrasion. Teeth appear intact. Neck supplemand not tender. ) - Neck Neck: Supple, no meningeal sign, No bony TTP - Cardiac Cardiac: RRR, No murmur - Respiratory Respiratory: Clear bilaterally, Other (no chestwall tenderness. ) - Abdomen Abdomen: Soft, Non tender Results - Vitals Vitals: Oxygen O2 Source Room air - Labs Labs: Laboratory Tests 12/04/23 12/04/23 10:06 10:06 WBC 5.6 RBC 3.73 L Hgb 11.9 L Hct 37.6 L MCV 100.8 H MCH 31.9 H MCHC 31.6 L RDW 12.3 Plt Count 200 MPV 9.4 Neut # (Auto) 2.9 Lymph # (Auto) 2.0 [place] # (Auto) 0.6 Eos # (Auto) 0.1 Baso # (Auto) 0.0 Absolute Nucleated RBC 0.00 Nucleated RBC % 0.0 Sodium 139 Potassium 3.5 Chloride 107 Carbon Dioxide 26 Anion Gap 6.0 BUN 12 Creatinine 0.8 Estimated GFR (MDRD) 104 Glucose 89 Calcium 8.7 Magnesium 1.9 Total Bilirubin 0.2 AST 13 ALT 16 Alkaline Phosphatase 58 Total Protein 5.8 L Albumin 3.7 Globulin 2.1 Albumin/Globulin Ratio 1.8 Lipase 25 Last Dose Date Not Reportable Last Dose Time Not Reportable Valproic Acid 57.3 PD Medical Decision Making - ED course Complexity details: reviewed results, re-evaluated patient (fully alert and conversant, ambulatory to bathroom. No particular complaints. Denies recent illness, missed meds, etc. ), considered differential, d/w patient Departure - Departure Disposition: Home, Self Care Clinical Impression: Multiple abrasions, Recurrent seizures Condition: Stable Record reviewed to determine appropriate education?: Yes Comments: Your Depakote level is in the right range. We are measuring your Lamictal level but we will get the results for couple of days. Continue with your current usual medicines and stay well-hydrated. Your blood tests including blood count and chemistry panel are normal. No obvious trigger for your current seizure. Continue normal activity and hydration. For the abrasions, clean with soap and water and apply ointment. Band-Aid as needed for protection's. Recheck if signs of infection. Forms: PCP List Discharge Date/Time: 12/04/23 11:48
[2023-12-04] MEDS: SODIUM CHLORIDE 0.9% 1,000 ML IV STA (09:37)
[2023-12-04] MEDS: BACITRACIN ZINC OINT 1 PACKET TOP STA (09:39)
[2023-12-04] MEDS: KETOROLAC 15 MG/ML VIAL IVP STA (09:58)
[2023-12-04 10:24] LABS: BASOPHILS % (AUTO) 0.4 %; EOSINOPHILS # (AUTO) 0.1 10^3/uL (0.0-0.7); EOSINOPHILS % (AUTO) 1.6 %; HCT - HEMATOCRIT 37.6 % (42.0-52.0); HGB - HEMOGLOBIN 11.9 g/dL (14.0-18.0); LYMPHOCYTES % (AUTO) 35.3 %; MEAN CORPUSCULAR HEMOGLOBIN 31.9 pg (27.0-31.0); MEAN CORPUSCULAR HGB CONC 31.6 g/dL (32.0-36.0); MEAN CORPUSCULAR VOLUME 100.8 fL (80.0-94.0); MEAN PLATELET VOLUME 9.4 fL (7.4-11.4); MONOCYTES # (AUTO) 0.6 10^3/uL (0.0-1.0); MONOCYTES % (AUTO) 9.9 %; NEUTROPHILS # (AUTO) 2.9 10^3/uL (1.5-6.6); NEUTROPHILS % (AUTO) 51.9 %; PLT - PLATELET COUNT 200 10^3/uL (130-450); RED BLOOD COUNT 3.73 10^6/uL (4.70-6.10); RED CELL DISTRIBUTION WIDTH 12.3 % (12.0-15.0); WHITE BLOOD COUNT 5.6 x10^3/uL (4.8-10.8)
[2023-12-04 10:39] LABS: ALBUMIN 3.7 g/dL (3.2-5.5); ALBUMIN/GLOBULIN RATIO 1.8 (1.0-2.2); ALKALINE PHOSPHATASE 58 IU/L (42-121); ALT ALANINE AMINOTRANSFERASE 16 IU/L (10-60); AST ASPARTATE AMINOTRANSFERASE 13 IU/L (10-42); BILIRUBIN,TOTAL 0.2 mg/dL (0.2-1.0); BUN - BLOOD UREA NITROGEN 12 mg/dL (6-20); CALCIUM 8.7 mg/dL (8.5-10.3); CARBON DIOXIDE - CO2 26 mmol/L (21-32); CHLORIDE 107 mmol/L (101-111); CREATININE 0.8 mg/dL (0.6-1.3); GFR - MDRD 104 (>89); GLUCOSE 89 mg/dL (74-104); LIPASE 25 U/L (11-82); MAGNESIUM 1.9 mg/dL (1.7-2.3); POTASSIUM 3.5 mmol/L (3.5-4.5); SODIUM 139 mmol/L (135-145); TOTAL PROTEIN 5.8 g/dL (6.4-8.9); VALPROIC ACID (DEPAKOTE) 57.3 ug/mL
[2023-12-04 11:53] VITALS: BP 133/80; O2SAT 98
== END 2023-12-04 11:48 | disposition home or self-care (01) ==
LOC: EDUNIT# → ED 09:14
DX: G40.409 Other generalized epilepsy and epileptic syndromes, not intractable, without status epilepticus (principal); S00.31XA Abrasion of nose, initial encounter; S00.81XA Abrasion of other part of head, initial encounter; W18.30XA Fall on same level, unspecified, initial encounter; F17.200 Nicotine dependence, unspecified, uncomplicated; Z79.899 Other long term (current) drug therapy
CPT/HCPCS: 36415; 80053; 80164; 80175; 83690; 83735; 85025; 96374; 99283; 99284; A9270

== ENCOUNTER 2023-12-10 05:38 | Outpatient (CLI) | payer MEDICARE, MEDICAID | END 2023-12-10 22:13 | disposition EMS.NT | LOC: EMS 05:38 | DX: R45.1 Restlessness and agitation (principal); F15.90 Other stimulant use, unspecified, uncomplicated ==

== ENCOUNTER 2023-12-21 14:44 | Emergency (ER) | payer OTHER, MEDICARE ==
[2023-12-21] MEDS: OLANZapine 10 MG VIAL IM ONE (15:14)
[2023-12-21] MEDS: KETAMINE 500 MG/10 ML VIAL IM STA (15:15)
--- NOTE | 2023-12-21 15:33 | ED Physician Documentation ---
PD HPI MHE - Stated complaint Stated Complaint: PHILIPPE - Chief complaint Chief Complaint: MHE - History obtained from History obtained from: Patient, Police - History of Present Illness Primary symptom: Homicidal ideation - Additional information Additional information: 48-year-old male brought in by police. Reportedly he left a voicemail on his mother's answering machine that stated he was going to kill her. Police were contacted. The patient's mother states that she is not afraid of him and does not believe that he is actually going to kill her. The police therefore brought him here on an involuntary hold for homicidal ideation. Patient is uncooperative, angry, belligerent, yelling and threatening staff upon arrival. He attempted to walk out of the emergency department when he first arrived stating he was going to "go kill those fucking dogs". Informed the patient that there are no dogs here. The patient continued to be angry and aggressive to wards staff. Refusing to cooperate with a history or exam. Review of Systems Unable to obtain: Uncooperative PD PAST MEDICAL HISTORY - Past Medical History Past Medical History: Yes Cardiovascular: None Respiratory: None Neuro: Seizure disorder Endocrine/Autoimmune: None GI: None : None HEENT: None Psych: None Musculoskeletal: None Derm: None - Past Surgical History Past Surgical History: No - Present Medications Home Medications: Ambulatory Orders Medication Instructions Recorded Confirmed risperiDONE [Risperdal] 3 mg PO DAILY PM 11/17/16 12/21/23 Divalproex ER [Depakote ER] 250 mg PO HS 12/21/23 12/21/23 Risperidone [Risperdal] 1 mg PO DAILY PRN 12/21/23 12/21/23 lamoTRIgine [Lamictal] 200 mg PO HS 12/21/23 12/21/23 - Allergies Allergies/Adverse Reactions: Allergies Allergy/AdvReac Type Severity Reaction Status Date / Time No Known Drug Allergies Allergy Verified 12/21/23 15:03 - Social History Does the pt smoke?: Yes Smoking Status: Current every day smoker Does the pt drink ETOH?: No Does the pt have substance abuse?: Yes Substance Use and Type: Meth, Prescription Pills - Immunizations Immunizations are current?: Yes - POLST Patient has POLST: No PD ED PE NORMAL - Vitals Vital signs reviewed: Yes - General General: Other (angry, aggressive) - HEENT HEENT: Moist mucous membranes - Neck Neck: Supple, no meningeal sign - Cardiac Cardiac: RRR, Strong equal pulses - Respiratory Respiratory: No respiratory distress, Clear bilaterally - Abdomen Abdomen: Soft, Non tender, Non distended - Derm Derm: Warm and dry - Extremities Extremities: No edema, No calf tenderness / cord - Neuro Neuro: Other (angry, refuses to answer questions) Results - Vitals Vitals: Vital Signs - 24 hr 12/21/23 12/21/23 12/21/23 14:48 15:20 15:22 Temperature 36.5 C Heart Rate 85 94 92 Respiratory 12 17 12 Rate Blood Pressure 174/92 H 171/99 H 171/99 H O2 Saturation 97 94 94 If not protocol 0 : Oxygen Flow, liters/minute 12/21/23 12/21/23 12/21/23 15:31 16:02 16:31 Temperature Heart Rate 88 80 79 Respiratory 23 12 16 Rate Blood Pressure 159/103 H 159/107 H 137/58 H O2 Saturation 93 95 93 If not protocol : Oxygen Flow, liters/minute Oxygen O2 Source Room air - EKG (time done) 1530 EKG releavant findings:: EKG personally interpreted by author of this note. Relevant findings are: Rate: Rate (enter#) (90) Rhythm: NSR [place]: Normal Intervals: Normal [place] QRS: Normal Ischemia: Normal ST segments - Labs Labs: Laboratory Tests 12/21/23 12/21/23 12/21/23 15:26 15:40 15:40 WBC 8.2 RBC 4.45 L Hgb 14.1 Hct 43.7 MCV 98.2 H MCH 31.7 H MCHC 32.3 RDW 12.2 Plt Count 279 MPV 9.4 Neut # (Auto) 3.9 Lymph # (Auto) 3.2 [place] # (Auto) 0.8 Eos # (Auto) 0.2 Baso # (Auto) 0.0 Absolute Nucleated RBC 0.00 Nucleated RBC % 0.0 Sodium 135 Potassium 4.2 Chloride 102 Carbon Dioxide 26 Anion Gap 7.0 BUN 15 Creatinine 0.9 Estimated GFR (MDRD) 90 Glucose 102 Calcium 9.5 Magnesium 2.2 Total Bilirubin 0.5 AST 16 ALT 15 Alkaline Phosphatase 62 Total Creatine Kinase 150 Total Protein 6.6 Albumin 4.5 Globulin 2.1 Albumin/Globulin Ratio 2.1 Lipase 55 Vitamin B12 753 Folate 19.8 TSH 4.94 Urine Color Urine Clarity Urine pH Ur Specific [place] Urine Protein Urine Glucose (UA) Urine Ketones Urine Occult Blood Urine Nitrite Urine Bilirubin Urine Urobilinogen Ur Leukocyte Esterase Ur Microscopic Review Urine Culture Comments Salicylates < 1.5 Urine Opiates Screen Ur Buprenorphine Scrn Ur Oxycodone Screen Urine Methadone Screen Acetaminophen < 0.1 Ur Barbiturates Screen Ur Tricyclics Screen Ur Phencyclidine Scrn Ur Amphetamine Screen U Methamphetamines Scrn U Benzodiazepines Scrn Urine Cocaine Screen U Cannabinoids Screen Ur Drug Screen Comment Ethyl Alcohol < 10.0 SARS-CoV-2 (PCR) NOT DETECTED 12/21/23 15:53 WBC RBC Hgb Hct MCV MCH MCHC RDW Plt Count MPV Neut # (Auto) Lymph # (Auto) [place] # (Auto) Eos # (Auto) Baso # (Auto) Absolute Nucleated RBC Nucleated RBC % Sodium Potassium Chloride Carbon Dioxide Anion Gap BUN Creatinine Estimated GFR (MDRD) Glucose Calcium Magnesium Total Bilirubin AST ALT Alkaline Phosphatase Total Creatine Kinase Total Protein Albumin Globulin Albumin/Globulin Ratio Lipase Vitamin B12 Folate TSH Urine Color DARK YELLOW Urine Clarity CLEAR Urine pH 7.0 Ur Specific [place] 1.020 Urine Protein NEGATIVE Urine Glucose (UA) NEGATIVE Urine Ketones NEGATIVE Urine Occult Blood NEGATIVE Urine Nitrite NEGATIVE Urine Bilirubin NEGATIVE Urine Urobilinogen 0.2 (NORMAL) Ur Leukocyte Esterase NEGATIVE Ur Microscopic Review NOT INDICATED Urine Culture Comments NOT INDICATED Salicylates Urine Opiates Screen NEGATIVE Ur Buprenorphine Scrn NEGATIVE Ur Oxycodone Screen NEGATIVE Urine Methadone Screen NEGATIVE Acetaminophen Ur Barbiturates Screen NEGATIVE Ur Tricyclics Screen NEGATIVE Ur Phencyclidine Scrn NEGATIVE Ur Amphetamine Screen POSITIVE H U Methamphetamines Scrn POSITIVE H U Benzodiazepines Scrn NEGATIVE Urine Cocaine Screen NEGATIVE U Cannabinoids Screen POSITIVE H Ur Drug Screen Comment CUTOFF CONC BELOW: Ethyl Alcohol SARS-CoV-2 (PCR) PD Medical Decision Making - ED course Complexity details: reviewed results, re-evaluated patient, considered differential, d/w patient ED course: Patient had to be placed in restraints in the emergency department, given Zyprexa and ketamine. Blood draw performed, urinalysis obtained. After he was asleep in the emergency department, the restraints were removed. Patient is still sleeping at the time of signout. Patient is medically clear for psychiatric care. When the patient is arousable and able to participate in conversation, DCR will need to be contacted for his homicidal statements. Patient is signed out to the oncoming emergency department physician for further care. This document was made in part using voice recognition software. While efforts are made to proofread this document, sound alike and grammatical errors may occur. Departure - Departure Clinical Impression: Methamphetamine abuse, Homicidal ideation Condition: Stable Forms: PCP List
--- NOTE | 2023-12-21 15:36 | ED Physician Documentation ---
Restraint [id number] - Immediate Situation Face to Face Evaluation Date: 12/21/23 Face to Face Evaluation Time: 15:34 Restraint Classification: Violent, chemical w/ physical hold - Patient's Reaction & Behaviors Safety: Physically safe Harm: Potential harm to others, Verbalizes intent to harm Physical: Aggressive behavior (Patient is calm after being sedated, sleeping in the emergency department, sonorous respirations) - Behavioral Condition Attitude: Other (sleeping) Behavior: Other (sleeping) Orientation: Non-responsive Mood: Other (sleeping, sedated) - Evaluation Pertinent History/Illicit Drugs/Medications/Results: methamphetamine abuse, psychosis - Plan Need to Initiate/Renew Violent or Chemical Restraint: continue
[2023-12-21 15:46] LABS: BASOPHILS % (AUTO) 0.5 %; EOSINOPHILS # (AUTO) 0.2 10^3/uL (0.0-0.7); EOSINOPHILS % (AUTO) 2.3 %; HCT - HEMATOCRIT 43.7 % (42.0-52.0); HGB - HEMOGLOBIN 14.1 g/dL (14.0-18.0); LYMPHOCYTES # (AUTO) 3.2 10^3/uL (1.5-3.5); LYMPHOCYTES % (AUTO) 39.1 %; MEAN CORPUSCULAR HEMOGLOBIN 31.7 pg (27.0-31.0); MEAN CORPUSCULAR HGB CONC 32.3 g/dL (32.0-36.0); MEAN CORPUSCULAR VOLUME 98.2 fL (80.0-94.0); MEAN PLATELET VOLUME 9.4 fL (7.4-11.4); MONOCYTES # (AUTO) 0.8 10^3/uL (0.0-1.0); MONOCYTES % (AUTO) 9.7 %; NEUTROPHILS # (AUTO) 3.9 10^3/uL (1.5-6.6); NEUTROPHILS % (AUTO) 48.2 %; PLT - PLATELET COUNT 279 10^3/uL (130-450); RED BLOOD COUNT 4.45 10^6/uL (4.70-6.10); RED CELL DISTRIBUTION WIDTH 12.2 % (12.0-15.0); WHITE BLOOD COUNT 8.2 x10^3/uL (4.8-10.8)
[2023-12-21 16:00] LABS: MAGNESIUM 2.2 mg/dL (1.7-2.3)
[2023-12-21 16:05] LABS: BILIRUBIN,URINE NEGATIVE (NEGATIVE); GLUCOSE, URINE (UA) NEGATIVE (NEGATIVE); KETONES,URINE (UA) NEGATIVE (NEGATIVE); LEUKOCYTE ESTERASE, URINE NEGATIVE (NEGATIVE); NITRITE,URINE NEGATIVE (NEGATIVE); OCCULT BLOOD,URINE NEGATIVE (NEGATIVE); PROTEIN,URINE NEGATIVE (NEGATIVE); UROBILINOGEN,URINE 0.2 (NORMAL) E.U./dL (NORMAL)
[2023-12-21 16:06] LABS: ALBUMIN 4.5 g/dL (3.2-5.5); ALBUMIN/GLOBULIN RATIO 2.1 (1.0-2.2); ALKALINE PHOSPHATASE 62 IU/L (42-121); ALT ALANINE AMINOTRANSFERASE 15 IU/L (10-60); AST ASPARTATE AMINOTRANSFERASE 16 IU/L (10-42); BILIRUBIN,TOTAL 0.5 mg/dL (0.2-1.0); BUN - BLOOD UREA NITROGEN 15 mg/dL (6-20); CALCIUM 9.5 mg/dL (8.5-10.3); CARBON DIOXIDE - CO2 26 mmol/L (21-32); CHLORIDE 102 mmol/L (101-111); CK- CREATINE KINASE 150 IU/L (30-223); CREATININE 0.9 mg/dL (0.6-1.3); ETOH - ETHANOL < 10.0 mg/dL; GFR - MDRD 90 (>89); GLUCOSE 102 mg/dL (74-104); LIPASE 55 U/L (11-82); POTASSIUM 4.2 mmol/L (3.5-4.5); SODIUM 135 mmol/L (135-145); TOTAL PROTEIN 6.6 g/dL (6.4-8.9)
[2023-12-21 16:10] LABS: ACETAMINOPHEN < 0.1 ug/mL; SALICYLATE < 1.5 mg/dL
[2023-12-21 16:11] LABS: CLARITY,URINE CLEAR (CLEAR)
[2023-12-21 16:18] LABS: AMPHETAMINE SCREEN,URINE POSITIVE (NEGATIVE); BARBITURATE SCREEN,UR NEGATIVE (NEGATIVE); BENZODIAZEPINES SCREEN, URINE NEGATIVE (NEGATIVE); BUPRENORPHINE SCREEN, URINE NEGATIVE (NEGATIVE); COCAINE SCREEN URINE NEGATIVE (NEGATIVE); METHADONE SCREEN, URINE NEGATIVE (NEGATIVE); METHAMPHETAMINES SCREEN, URINE POSITIVE (NEGATIVE); OPIATE SCREEN, URINE NEGATIVE (NEGATIVE); OXYCODONE SCREEN, URINE NEGATIVE (NEGATIVE); THC CANNABINOID SCREEN, URINE POSITIVE (NEGATIVE); TRICYCLIC ANTIDEPRESSANT,URINE NEGATIVE (NEGATIVE)
[2023-12-21 16:56] LABS: THYROID STIMULATING HORMONE 4.94 uIU/mL (0.34-5.60)
[2023-12-22 10:13] VITALS: BP 106/58; O2SAT 99
--- NOTE | 2023-12-22 12:53 | ED Physician Documentation ---
ED Addendum - Addendum Addendum: 12/22/23 12:52 Accepted to [facility] under involuntary treatment ACT, detained by the DCR. He is stable for transport. Diagnosis: Homicidal Of note the paramedics restrained him for transport. He was not restrained whilst under the care of the emergency department. At least not since last night.
== END 2023-12-22 14:11 ==
LOC: ED 14:44
DX: F29 Unspecified psychosis not due to a substance or known physiological condition (principal); R45.850 Homicidal ideations; F15.10 Other stimulant abuse, uncomplicated; F17.200 Nicotine dependence, unspecified, uncomplicated; Z11.52 Encounter for screening for COVID-19; Z78.1 Physical restraint status
CPT/HCPCS: 36415; 51701; 80053; 80143; 80179; 80306; 81001; 81003; 82077; 82550; 82607; 82746; 83690; 83735; 84443; 85025; 87086; 87635; 93005; 96372; 99284; 99285

== ENCOUNTER 2023-12-22 14:08 | Outpatient (CLI) | payer MEDICARE, MEDICAID | END 2023-12-22 23:59 | LOC: EMS 14:08 | PROVIDERS: ATTEND Emergency Medicine | DX: R45.850 Homicidal ideations (principal); R45.6 Violent behavior; Z78.1 Physical restraint status | CPT/HCPCS: A0425; A0428 ==

== ENCOUNTER 2024-01-21 18:00 | Outpatient (CLI) | payer MEDICARE, MEDICAID ==
--- NOTE | 2024-01-22 08:41 | XRAY Report ---
PROCEDURE: Foot 3+V LT INDICATIONS: SPRAIN OF LEFT GREAT TOE TECHNIQUE: 3 views of the foot were acquired. COMPARISON: None. FINDINGS: Bones: No acute fractures or dislocations. No suspicious bony lesions. Mild degenerative changes at the 1st metatarsophalangeal joint and the interphalangeal joints of toes. Soft tissues: Nonspecific soft tissue edema at the dorsum of the forefoot. IMPRESSION: No acute osseous abnormality. Nonspecific soft tissue edema dorsally. If there is clinical concern or persistent symptoms, additional imaging such as repeat radiographs or advanced imaging (e.g. CT, MRI ) may be helpful for further evaluation. Reviewed by: Fuad Kirby MD on 01/22/2024 8:40 AM PDT Approved by: Fuad Kirby MD on 01/22/2024 8:40 AM PDT Station ID: [id number]
== END 2024-01-21 23:59 | disposition home or self-care (01) ==
LOC: DI.S 18:00
PROVIDERS: ATTEND Emergency Medicine
DX: M19.072 Primary osteoarthritis, left ankle and foot (principal); R60.0 Localized edema

== ENCOUNTER 2024-01-25 12:25 | Outpatient (CLI) | payer MEDICARE, MEDICAID | END 2024-01-25 23:59 | disposition left against medical advice (07) | LOC: EMS 12:25 | DX: Z03.89 Encounter for observation for other suspected diseases and conditions ruled out (principal) ==

== ENCOUNTER 2024-02-01 07:00 | Outpatient (CLI) | payer MEDICAID, MEDICARE ==
--- NOTE | 2024-02-02 07:04 | XRAY Report ---
PROCEDURE: Foot 3+V LT INDICATIONS: LEFT FOOT GREAT TOE SPRAIN TECHNIQUE: 3 views of the foot were acquired. COMPARISON: None. FINDINGS: Bones: No fractures or dislocations. No suspicious bony lesions. Soft tissues: No tibiotalar joint effusion. Achilles tendon appears normal. IMPRESSION: No acute bony abnormality. Reviewed by: Madi Patel MD on 02/02/2024 7:02 AM PDT Approved by: Madi Patel MD on 02/02/2024 7:02 AM PDT Station ID: [id number]
== END 2024-02-01 23:59 | disposition home or self-care (01) ==
LOC: DI.S 07:00
PROVIDERS: ATTEND Registered Nurse
DX: S93.522A Sprain of metatarsophalangeal joint of left great toe, initial encounter (principal)